=== PATIENT | male | born 1990 | race Two or more races ===

== ENCOUNTER 2016-10-17 23:20 | Inpatient (IN) | payer SELFPAY ==
[2016-10-18 00:34] LABS: APPEARANCE,URINE CLEAR; BILIRUBIN,URINE NEGATIVE (NEGATIVE); GLUCOSE, URINE >=500 mg/dL (NEGATIVE); KETONES,URINE 80 mg/dL (NEGATIVE); LEUKOCYTE ESTERASE,URINE NEGATIVE (NEGATIVE); NITRITE,URINE NEGATIVE (NEGATIVE); PROTEIN,URINE 30 mg/dL (NEGATIVE); URINE SPECIFIC GRAVITY 1.026; UROBILINOGEN,URINE NEGATIVE mg/dL (<2.0)
[2016-10-18] MEDS ORDERED: NORMAL SALINE 1000 ML 1,000 ML IV ONE ×3 (00:48→02:20)
[2016-10-18] MEDS ORDERED: ONDANSETRON HCL INJ/PF 4 MG/2 ML SDV IV ONE (00:49)
[2016-10-18 01:13] LABS: HEMATOCRIT 58.6 % (37.9-51.0); HEMOGLOBIN 19.2 g/dL (13.5-17.0); MEAN CORPUSCULAR HEMOGLOBIN 32.5 pg (27.0-33.4); MEAN CORPUSCULAR HGB CONC 32.8 g/dL (32.0-36.0); MEAN CORPUSCULAR VOLUME 99 fl (80-97); RED BLOOD COUNT 5.91 10^6/uL (4.35-5.55); RED CELL DISTRIBUTION WIDTH 13.1 % (11.5-14.0); WHITE BLOOD COUNT 19.4 10^3/uL (4.0-10.5)
[2016-10-18 01:31] LABS: ALANINE AMINOTRANSFERASE 101 U/L (21-72); ALBUMIN 5.2 g/dL (3.5-5.0); ALKALINE PHOSPHATASE 151 U/L (38-126); ASPARTATE AMINO TRANSFERASE 26 U/L (17-59); BILIRUBIN,DIRECT 0.6 mg/dL (0.0-0.4); BILIRUBIN,TOTAL 0.9 mg/dL (0.2-1.3); BLOOD UREA NITROGEN 28 mg/dL (7-20); CALCIUM 10.1 mg/dL (8.4-10.2); CREATININE RESULT 1.81 mg/dL (0.52-1.25)
[2016-10-18 01:33] LABS: BAND NEUTROPHILS % (MANUAL) 1 % (3-5); BASOPHILS % (MANUAL) 0 % (0-2); EOSINOPHILS % (MANUAL) 0 % (0-6); LYMPHOCYTES % (MANUAL) 1 % (13-45); TOTAL CELLS COUNTED 100
[2016-10-18 01:35] LABS: TOXIC VACUOLATION PRESENT
[2016-10-18 01:36] LABS: BURR CELLS SLIGHT; POIKILOCYTOSIS SLIGHT; TEAR DROP CELLS SLIGHT
[2016-10-18 01:43] LABS: CHLORIDE 96 mmol/L (98-107); SODIUM 139.7 mmol/L (137-145)
[2016-10-18 01:47] LABS: CARBON DIOXIDE < 5 mmol/L (22-30); GLUCOSE 977 mg/dL (75-110); POTASSIUM 6.7 mmol/L (3.6-5.0)
[2016-10-18] MEDS ORDERED: INSULIN REG, HUMAN 100 UNIT/ML 3 ML VIAL (PYX) IV ONE (01:53)
[2016-10-18] MEDS ORDERED: DEXTROSE 5%-WATER 1000 ML 1,000 ML with SODIUM BICARBONATE 150 MEQ IV PRN ×2 (02:05)
--- NOTE | 2016-10-18 02:05 | ER Document Report ---
ED General - General Chief Complaint: Abdominal Pain Stated Complaint: ABDOMINAL PAIN Time Seen by Provider: 10/18/16 00:48 Notes: Patient is a 26-year-old male without past medical history, no prior surgical history who presents with 1 week of progressively worsening nausea, vomiting, diarrhea and generalized abdominal pain. He was seen at 2 urgent cares on 2 separate occasions and diagnosis having a possible pharyngitis. He was treated with penicillin without improvement of his symptoms. He denies any history of similar symptoms in the past. No known sick contacts. Nothing improves or worsens his symptoms. States he has been unable to tolerate oral intake all day today. He has no prior history of diabetes. No recent viral illnesses. He does note a diffuse generalized abdominal pain which is moderate, cramping, constant in nature. TRAVEL OUTSIDE OF THE [place] IN LAST 30 DAYS: No - Related Data Allergies/Adverse Reactions: No Known Allergies Allergy (Verified 10/17/16 23:30) Home Medications: Current Home Medications No Home Medications 10/18/16 [History] Past Medical History - General Information source: Patient - Social History Smoking Status: Never Smoker Frequency of alcohol use: None Drug Abuse: None Lives with: Family Family History: Reviewed & Not Pertinent Patient has suicidal ideation: No Patient has homicidal ideation: No Renal/ Medical History: Denies: Hx Peritoneal Dialysis Surgical Hx: Negative Review of Systems - Review of Systems Notes: Constitutional: Negative for fever. HENT: Negative for sore throat. Eyes: Negative for visual changes. Cardiovascular: Negative for chest pain. Respiratory: Negative for shortness of breath. Gastrointestinal: Positive for abdominal pain vomiting and diarrhea Genitourinary: Negative for dysuria. Musculoskeletal: Negative for back pain. Skin: Negative for rash. Neurological: Negative for headaches, weakness or numbness. 10 point ROS negative except as marked above and in HPI. Physical Exam - Vital signs Vitals: Temp Pulse Resp BP Pulse Ox 98.4 F 138 H 18 127/83 H 98 10/17/16 23:30 10/17/16 23:30 10/17/16 23:30 10/17/16 23:30 10/17/16 23:30 Interpretation: Tachycardic Notes: PHYSICAL EXAMINATION: GENERAL: Appears ill but in no acute distress HEAD: Atraumatic, normocephalic. EYES: Pupils equal round and reactive to light, extraocular movements intact, sclera anicteric, conjunctiva are normal. ENT: nares patent, oropharynx clear without exudates. Moderately dry mucous membranes. NECK: Normal range of motion, supple without lymphadenopathy LUNGS: Breath sounds clear to auscultation bilaterally and equal. No wheezes rales or rhonchi. HEART: Regular rate and rhythm without murmurs ABDOMEN: Soft, diffuse mild tenderness to palpation, normoactive bowel sounds. No guarding, no rebound. No masses appreciated. EXTREMITIES: Normal range of motion, no pitting or edema. No cyanosis. NEUROLOGICAL: No focal neurological deficits. Moves all extremities spontaneously and on command. PSYCH: Mildly lethargic but appropriate in responses SKIN: Warm, Dry, normal turgor, no rashes or lesions noted. Course - Re-evaluation Re-evalutation: 10/18/16 0120 Patient presents with 1 week of progressively worsening vomiting, diarrhea, a 10 pound weight loss in 1 week, polyuria and polydipsia. Patient is somewhat ill in appearance, extremely dry, tachycardic but is not altered. He does have Kussmaul's respirations. Presentation is worrisome for new onset diabetes. Awaiting laboratories 0150-laboratories demonstrate findings consistent with diabetic ketoacidosis likely with severe acidosis and significant dehydration given bicarb less than 5 , hypernatremia, and severe hyperkalemia. Patient has been started on 3 L of normal saline, and insulin infusion has been started. Awaiting venous blood gas results. His physical examination is overall unremarkable with exception of significant dehydration. Will continue to reassess frequently. 10/18/16 02:20 I have discussed this case with Dr. Keita who will admit to the ICU. Will continue to monitor while the patient is down here. He is working through his third liter of normal saline at this time. 10/18/16 03:32 Patient remains tachycardic but alert, oriented and appropriate. Continue with aggressive IV fluids. Care transferred to the hospitalist. - Vital Signs Vital signs: Temp Pulse Resp BP Pulse Ox 98.4 F 138 H 22 H 131/92 H 97 10/17/16 23:30 10/17/16 23:30 10/18/16 03:00 10/18/16 02:00 10/18/16 03:00 - Laboratory Result Diagrams: 10/18/16 00:59 10/18/16 00:59 Laboratory results interpreted by me: 10/18/16 10/18/16 10/18/16 00:07 00:59 00:59 WBC 19.4 H RBC 5.91 H Hgb 19.2 H Hct 58.6 H MCV 99 H Seg Neuts % (Manual) 98 H Band Neutrophils % 1 L Lymphocytes % (Manual) 1 L Monocytes % (Manual) 0 L Abs Neuts (Manual) 19.2 H Abs Lymphs (Manual) 0.2 L Abs Monocytes (Manual) 0.0 L Potassium 6.7 H* Chloride 96 L Carbon Dioxide < 5 L* BUN 28 H Creatinine 1.81 H Est GFR ( Amer) 56 L Est GFR (Non-Af Amer) 46 L Glucose 977 H* Hemoglobin A1c % Magnesium Direct Bilirubin 0.6 H ALT 101 H Alkaline Phosphatase 151 H Albumin 5.2 H Urine Protein 30 H Urine Glucose (UA) >=500 H Urine Ketones 80 H Urine Blood MODERATE H 10/18/16 10/18/16 00:59 00:59 WBC RBC Hgb Hct MCV Seg Neuts % (Manual) Band Neutrophils % Lymphocytes % (Manual) Monocytes % (Manual) Abs Neuts (Manual) Abs Lymphs (Manual) Abs Monocytes (Manual) Potassium Chloride Carbon Dioxide BUN Creatinine Est GFR ( Amer) Est GFR (Non-Af Amer) Glucose Hemoglobin A1c % 9.1 H Magnesium 3.0 H Direct Bilirubin ALT Alkaline Phosphatase Albumin Urine Protein Urine Glucose (UA) Urine Ketones Urine Blood - EKG Interpretation by Me Additional EKG results interpreted by me: 10/18/16 03:32 Sinus tachycardia. Rate 126. No ST elevations or depressions. QTC is 499. Critical Care Note - Critical Care Note Total time excluding time spent on procedures (mins): 42 Comments: Critical care time spent obtaining history from patient or surrogate, discussions with consultants, development of treatment plan with patient or surrogate, evaluation of patient's response to treatment, examination of patient , ordering and performing treatments and interventions, ordering and review of laboratory studies, re-evaluation of patient's condition, ordering and review of radiographic studies and review of old charts Discharge - Discharge Clinical Impression: Metabolic acidosis, Severe dehydration Diabetic ketoacidosis Qualifiers: Diabetes mellitus type: type 1 Diabetes mellitus complication detail: without coma Qualified Code(s): E10.10 - Type 1 diabetes mellitus with ketoacidosis without coma Condition: Fair Disposition: ADMITTED INPATIENT Admitting Provider: Bertha Ortizwell Unit Admitted: ICU
[2016-10-18] MEDS ORDERED: 1/2 NORMAL SALINE 1,000 ML IV PRN (02:24)
[2016-10-18] MEDS ORDERED: DEXTROSE 40% GEL 15 GM TUBE PO PRN ×2 (02:26)
[2016-10-18] MEDS ORDERED: NORMAL SALINE 100 ML with INSULIN REGULAR, HUMAN 100 UNIT IV PRN ×2 (02:26)
[2016-10-18] MEDS ORDERED: DEXTROSE 50%-WATER 25 GM/50 ML DISP.SYRIN IV PRN ×2 (02:26)
[2016-10-18] MEDS ORDERED: GLUCAGON,HUMAN RECOMB 1 MG INJ IM PRN (02:26)
[2016-10-18] MEDS ORDERED: 1/2 NORMAL SALINE 2,000 ML IV ONE (02:30)
[2016-10-18 02:48] LABS: ARTERIAL BLOOD BASE EXCESS -21.5 mmol/L; ARTERIAL BLOOD O2 SATURATION 96.8 % (94-98)
[2016-10-18 03:14] LABS: URINE BARBITURATES SCREEN NEGATIVE; URINE METHADONE SCREEN NEGATIVE; URINE OPIATES LOW NEGATIVE; URINE PHENCYCLIDINE SCREEN NEGATIVE
[2016-10-18 03:44] LABS: BLOOD UREA NITROGEN 24 mg/dL (7-20); CALCIUM 8.6 mg/dL (8.4-10.2); CHLORIDE 112 mmol/L (98-107); CREATININE RESULT 1.22 mg/dL (0.52-1.25)
--- NOTE | 2016-10-18 03:46 | RADIOLOGY REPORT (SQ) ---
EXAM DESCRIPTION: CHEST SINGLE VIEW COMPLETED DATE/TIME: 10/18/2016 2:46 am REASON FOR STUDY: dka COMPARISON: None. EXAM PARAMETERS: NUMBER OF VIEWS: One view. TECHNIQUE: Single frontal radiographic view of the chest acquired. RADIATION DOSE: NA LIMITATIONS: None. FINDINGS: LUNGS AND PLEURA: No consolidation, pneumothorax or pleural effusion. MEDIASTINUM AND HILAR STRUCTURES: No masses. Contour normal. HEART AND VASCULAR STRUCTURES: Heart normal in size. No overt vascular congestion. BONES: No acute findings. HARDWARE: None in the chest. IMPRESSION: No acute radiographic finding in the chest. TECHNICAL DOCUMENTATION: JOB ID: [id number]
[2016-10-18 03:58] LABS: SODIUM 148.4 mmol/L (137-145)
[2016-10-18 04:01] LABS: POTASSIUM 5.4 mmol/L (3.6-5.0)
[2016-10-18 04:03] LABS: CARBON DIOXIDE < 5 mmol/L (22-30); GLUCOSE 629 mg/dL (75-110)
[2016-10-18] MEDS ORDERED: MAG HYDROX/AL HYDROX/SIMETH SUSP 30 ML UDCUP PO PRN (04:57)
[2016-10-18] MEDS ORDERED: MAGNESIUM HYDROXIDE SUSP 30 ML UDCUP PO PRN (04:57)
[2016-10-18] MEDS ORDERED: PROMETHAZINE HCL 25 MG TABLET PO PRN (05:10)
[2016-10-18] MEDS ORDERED: ACETAMINOPHEN 325 MG TABLET PO PRN (05:10)
--- NOTE | 2016-10-18 05:35 | PDOC H&P ---
History of Present Illness Admission Date/PCP: 10/18/16 02:26 Primary care provider none Patient complains of: Nausea vomiting, weight loss, diarrhea, polyuria, polydipsia History of Present Illness: DINORAH UMANA is a 26 year old male from [facility], having lived in this country for 8 years, who presents to the emergency room for evaluation of above complaints. Patient has been discussed with emergency room physician who evaluated the patient. Patient himself speaks minimal Estonian but brother, who is present at his side with his approval, functions nicely as an interpreter deaf. For the past week he has had a number of episodes of nonbloody vomiting and diarrhea, 10 pound weight loss, polyuria and polydipsia. Apparently was seen at an outside urgent care center several days ago. Patient was not aware is diabetic. Father is diabetic, however. Was quite ill in appearance upon arrival to our emergency room, but according to staff, overall clinical appearance has improved significantly. Currently resting quietly. Complaining of being fatigued, but denies pain. Denies any "sore spots" anywhere on his body. Dictation via voice recognition software. Laboratory results are listed in hereO and are reviewed. X-ray summary results are listed below, with full report(s) reviewed. . EKG reviewed. Social history/personal habits: Single. 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 Occasional intermittent use of tobacco. Drinks alcohol only 1 day a week, on his day off, and will typically drink 8-10 beers at that time. No illicit drug use. No known drug allergies. Home medications none. REVIEW OF SYSTEMS: Constitutional: No fever or chills. Eyes: No vision complaints. ENT: No swallowing problems or complaints, other than very slight sore throat since his episodes of vomiting.. Denies hearing loss. Pulmonary: No current complaints. Cardiovascular: No current complaints, including chest pain. Gastrointestinal: See history and present illness. Skin: No current complaints, including rashes. Hematologic: Easy bruising. Neurologic: No current complaints, including numbness or tingling. Musculoskeletal: No current or chronic joint complaints, such as arthritis. Psychiatric: Mild occasional depression. Denies suicidal or homicidal ideation. Endocrine: See history and present illness. Genitourinary: See history and present illness. PHYSICAL EXAMINATION: 5 feet tall. 54.3 kg. BMI 23.4 kg/m. Blood pressure 131/92. Pulse 114 and regular. 97% saturation on room air. Respirations are 29 and unlabored. Temperature 98.2. Thin otherwise well-nourished well-developed male, appearing approximately his stated age. Pleasant awake alert and cooperative. Appears somewhat fatigued, and perhaps to feel a bit under the weather, so to speak. Brothers present at his side. Emergency room nurse Ava is present. Skin is warm and dry. No grossly obvious evidence of rash in areas of skin examined. No subcutaneous nodules palpated. ENT: Hearing grossly normal to normal conversation. Tongue midline on protrusion pink and slightly tacky. Eyes: No scleral icterus. Pupils equal and reactive to light at 4 mm. Crown conjunctivae. Neck is supple and nontender to gentle active range of motion and palpation. Midline trachea. No palpable thyroid nodule mass enlargement or tenderness. Lymphatic: No palpable cervical or clavicular nodes. Neck and lymphatic exams limited by patient body habitus. Psychiatric: Fair to reasonable insight into acute and chronic medical issues. Lungs: Auscultation reveals clear and equal breath sounds bilaterally. No use of accessory respiratory muscles. Cardiovascular: Heart regular rate and rhythm, without gallop murmur or rub. No carotid or abdominal aortic bruits. No ankle or pedal edema. Palpable dorsalis pedis pulses. Abdomen:soft slightly distended nontender with positive bowel sounds. Unable to adequately evaluate abdomen for masses or organomegaly due to distention. Extremities: Feet are warm and dry. No calf tenderness to compression. No grossly obvious visual evidence of calf swelling. Gentle manipulation of lower extremities fails to reveal any obvious evidence of injury or instability to knees hips or ankles. Neurologic: Moves upper extremities grossly normally. Patellar reflexes absent. Absent Babinski. Light touch is intact at feet. Dorsiflexion and plantarflexion of feet 5 / 5 and symmetric. Past Medical History Cardiac Medical History: Denies: Congestive Heart Failure, Myocardial Infarction, Hyperlipidema, Hypertension Pulmonary Medical History: Denies: Asthma, Chronic Obstructive Pulmonary Disease (COPD) EENT Medical History: Denies: Eyes, Ears, Throat Neurological Medical History: Denies: Hemorrhagic CVA, Ischemic CVA, Seizures Endocrine Medical History: Denies: Diabetes Mellitus Type 1, Diabetes Mellitus Type 2, Hyperthyroidism, Hypothyroidism Renal/ Medical History: Reports: None GI Medical History: Denies: Cirrhosis, Gastroesophageal Reflux Disease, Hepatitis, Peptic Ulcer Disease Musculoskeltal Medical History: Denies: Arthritis Skin Medical History: Reports: None Psychiatric Medical History: Reports: Depression, Tobacco Dependency, Other - Drinks only on his 1 day off per week; 8-10 beers on that day. Denies: General Anxiety Disorder, Substance Abuse Hematology: Reports: Other - Easy bruising Infectious Medical History: Denies: Hepatitis B, Hepatitis C Past Surgical History Past Surgical History: Reports: None Social History Information Source: Patient, Relative - Brother, Emergency Med Personnel, [facility] Records Lives with: Family Smoking Status: Current Some Day Smoker Frequency of Alcohol Use: Social Drugs: None - Advance Directive Resuscitation Status: Full Code Surrogate healthcare decision maker:: Brother Family History Family History: Reviewed & Not Pertinent Parental Family History Reviewed: Yes - Father diabetic; mother alive and healthy. Children Family History Reviewed: NA Sibling(s) Family History Reviewed.: Yes - Healthy Medication/Allergy Home Medications: Blood Sugar Diagnostic [Glucose Test Strip] 1 each ACHS #1 pkg 10/20/16 RX: Alcohol Antiseptic Pads [Alcohol Prep Pads] 1 each TP ASDIR PRN #1 pkg 10/20 RX: Hum Insulin NPH/Reg Insulin Hm [Insulin 70-30 (NPH/Reg) 100 unit/mL] 25 unit SUBCUT BIDACBS #1 vial 10/20/16 RX: Lancets [Fingerstix] 1 each ACHS #1 pkg 10/20/16 RX: Metformin HCl [Glucophage 500 mg Tablet] 1,000 mg PO BIDACBS #120 tablet Syringe & Needle,Insulin,1 ml [Insulin Syringe] 1 each BID #1 pkg 10/20/16 Allergies/Adverse Reactions: No Known Allergies Allergy (Verified 10/17/16 23:30) Physical Exam Vital Signs: Temp Pulse Resp BP Pulse Ox 98.2 F 138 H 27 H 126/88 H 98 10/18/16 03:34 10/17/16 23:30 10/18/16 04:16 10/18/16 04:16 10/18/16 04:01 Intake & Output 10/17/16 10/18/16 10/19/16 00:59 00:59 00:59 Output Total 1175 Balance -1175 Results Laboratory Results: 10/18/16 03:15 10/18/16 10/18/16 02:38 03:15 Carbonic Acid 0.54 L HCO3/H2CO3 Ratio 10:1 ABG pH 7.11 L* ABG pCO2 18.0 L* ABG pO2 114.1 H ABG HCO3 5.6 L ABG O2 Saturation 96.8 ABG Base Excess -21.5 FiO2 21% Sodium 148.4 H Potassium 5.4 H D Chloride 112 H Carbon Dioxide < 5 L* Anion Gap Not Reportable BUN 24 H Creatinine 1.22 Est GFR ( Amer) > 60 Est GFR (Non-Af Amer) > 60 Glucose 629 H* Calcium 8.6 10/18/16 03:15 Troponin I < 0.012 Impressions: Chest X-Ray 10/18/16 00:00 IMPRESSION: No acute radiographic finding in the chest. Assessment & Plan - Diagnosis (1) DVT prophylaxis Is this a current diagnosis for this admission?: Yes (2) Leukocytosis Qualifiers: Leukocytosis type: unspecified Qualified Code(s): D72.829 - Elevated white blood cell count, unspecified Is this a current diagnosis for this admission?: Yes Plan: Suspect a stress reaction to the diabetic ketoacidosis. No obvious source of infection. Repeat CBC with differential. (3) Elevated LFTs Is this a current diagnosis for this admission?: Yes Plan: Suspect due to the underlying DKA. Denies underlying biliary disease. Follow- up chemistry. (4) Diabetic ketoacidosis Qualifiers: Diabetes mellitus type: other specified (including DANIELLE) Diabetes mellitus complication detail: without coma Qualified Code(s): E13.10 - Other specified diabetes mellitus with ketoacidosis without coma Is this a current diagnosis for this admission?: Yes Plan: Patient will be admitted under DKA protocol. Insulin drip. Vigorous fluid hydration. Q 4 hours chemistry 7. Hourly Accu-Cheks. Addition of dextrose to intravenous fluid once serum glucose and/or Accu-Cheks 275 or less. Patient is full code. I have strongly encouraged patient not to get out of bed without notifying staff , to avoid a fall with injury. Knee high SCDs for DVT prophylaxis, along with subcutaneous Lovenox. Impression and plans were discussed with patient and brother, both of whom concur Time spent in evaluation and management of patient: 72 critical-care minutes - Time Critical Time spent with patient: 35 or more minutes Medications reviewed and adjusted accordingly: Yes Anticipated discharge: Home Within: within 72 hours - Inpatient Certification Based on my medical assessment, after consideration of the patient's comorbidities, presenting symptoms, or acuity I expect that the services needed warrant INPATIENT care.: Yes I certify that my determination is in accordance with my understanding of Medicare's requirements for reasonable and necessary INPATIENT services [42 CFR 412.3e].: Yes Medical Necessity: Need Close Monitoring Due to Risk of Patient Decompensation, Need For IV Fluids, Need For Continuous Telemetry Monitoring, Risk of Complication if Not Cared For in Hospital Post Hospital Care: D/C or Transfer Summary
[2016-10-18] MEDS: FAMOTIDINE INJ/PF 20 MG/2 ML SDV IV SCH ×2 (06:06→18:16)
[2016-10-18] MEDS ORDERED: DEXTROSE 5%-1/2 NORMAL SALINE 1,000 ML IV PRN (06:28)
[2016-10-18 06:55] LABS: ABSOLUTE BASOPHILS # (AUTO) 0.1 10^3/uL (0.0-0.2); ABSOLUTE LYMPHOCYTES (AUTO) 1.9 10^3/uL (0.5-4.7); ABSOLUTE MONOCYTES (AUTO) 1.2 10^3/uL (0.1-1.4); ABSOLUTE NEUT (AUTO) 12.3 10^3/uL (1.7-8.2); BASOPHILS % (AUTO) 0.4 % (0-2); HEMATOCRIT 43.2 % (37.9-51.0); HGB HCT DIFFERENCE 1.2; LYMPHOCYTES % (AUTO) 12.1 % (13-45); MEAN CORPUSCULAR HEMOGLOBIN 32.3 pg (27.0-33.4); MEAN CORPUSCULAR HGB CONC 34.3 g/dL (32.0-36.0); MONOCYTES % (AUTO) 7.5 % (3-13); RED CELL DISTRIBUTION WIDTH 12.6 % (11.5-14.0); WHITE BLOOD COUNT 15.4 10^3/uL (4.0-10.5)
[2016-10-18 07:03] LABS: HEMOGLOBIN 14.8 g/dL (13.5-17.0); MEAN CORPUSCULAR VOLUME 94 fl (80-97)
[2016-10-18 07:04] LABS: ALANINE AMINOTRANSFERASE 70 U/L (21-72); ALBUMIN 3.4 g/dL (3.5-5.0); ALKALINE PHOSPHATASE 87 U/L (38-126); ANION GAP 19 (5-19); ASPARTATE AMINO TRANSFERASE 18 U/L (17-59); BILIRUBIN,DIRECT 0.4 mg/dL (0.0-0.4); BILIRUBIN,TOTAL 0.7 mg/dL (0.2-1.3); BLOOD UREA NITROGEN 17 mg/dL (7-20); CALCIUM 7.8 mg/dL (8.4-10.2); CHLORIDE 117 mmol/L (98-107); CHOLESTEROL 164.23 mg/dL (0-200); CREATININE RESULT 0.75 mg/dL (0.52-1.25); Direct HDL 34 mg/dL (>40); GLUCOSE 273 mg/dL (75-110); SODIUM 144.6 mmol/L (137-145); TOTAL PROTEIN 5.6 g/dL (6.3-8.2); TRIGLYCERIDES 260 mg/dL (<150)
[2016-10-18 07:15] LABS: DIRECT LDL 92 mg/dL (<100)
[2016-10-18 07:16] LABS: POTASSIUM 4.3 mmol/L (3.6-5.0)
[2016-10-18 07:18] LABS: CARBON DIOXIDE 9 mmol/L (22-30)
--- NOTE | 2016-10-18 08:17 | Progress Note ---
Provider Note Provider Note: Pt seen, examined, and chart reviewed. Pt states that he was recently diagnosed with DM. Pt states that his father gives him insulin and he does not know who much he takes. Nursing states that pt is doing well. Will continue Insulin drip until CO2 and Ketones have resolved. Will placed on Diabetic diet.
[2016-10-18 09:19] LABS: APPEARANCE,URINE SLIGHTLY-CLOUDY; BILIRUBIN,URINE NEGATIVE (NEGATIVE); GLUCOSE, URINE >=500 mg/dL (NEGATIVE); KETONES,URINE 80 mg/dL (NEGATIVE); LEUKOCYTE ESTERASE,URINE SMALL (NEGATIVE); NITRITE,URINE NEGATIVE (NEGATIVE); PROTEIN,URINE 30 mg/dL (NEGATIVE); URINE SPECIFIC GRAVITY 1.022; UROBILINOGEN,URINE NEGATIVE mg/dL (<2.0)
[2016-10-18] MEDS ORDERED: DOCUSATE SODIUM 100 MG CAPSULE PO SCH (10:00)
[2016-10-18] MEDS: ENOXAPARIN SODIUM INJ 40 MG/0.4 ML DISP.SYRIN SUBCUT SCH (10:32)
[2016-10-18 11:09] LABS: ANION GAP 13 (5-19); BLOOD UREA NITROGEN 14 mg/dL (7-20); CALCIUM 7.9 mg/dL (8.4-10.2); CARBON DIOXIDE 16 mmol/L (22-30); CHLORIDE 113 mmol/L (98-107); CREATININE RESULT 0.67 mg/dL (0.52-1.25); GLUCOSE 358 mg/dL (75-110); POTASSIUM 3.7 mmol/L (3.6-5.0); SODIUM 141.6 mmol/L (137-145)
[2016-10-18 15:01] LABS: ANION GAP 13 (5-19); BLOOD UREA NITROGEN 12 mg/dL (7-20); CALCIUM 8.3 mg/dL (8.4-10.2); CARBON DIOXIDE 15 mmol/L (22-30); CHLORIDE 114 mmol/L (98-107); CREATININE RESULT 0.64 mg/dL (0.52-1.25); GLUCOSE 236 mg/dL (75-110); SODIUM 141.7 mmol/L (137-145)
[2016-10-18 21:49] LABS: APPEARANCE,URINE CLEAR; BILIRUBIN,URINE NEGATIVE (NEGATIVE); GLUCOSE, URINE >=500 mg/dL (NEGATIVE); KETONES,URINE 20 mg/dL (NEGATIVE); LEUKOCYTE ESTERASE,URINE NEGATIVE (NEGATIVE); NITRITE,URINE NEGATIVE (NEGATIVE); PROTEIN,URINE NEGATIVE (NEGATIVE); URINE SPECIFIC GRAVITY 1.025; UROBILINOGEN,URINE NEGATIVE mg/dL (<2.0)
--- NOTE | 2016-10-18 22:06 | EKG REPORT ---
SEVERITY:- ABNORMAL ECG - SINUS TACHYCARDIA PROLONGED QT INTERVAL : Confirmed by: Monica Ga 18-Oct-2016 22:05:22
[2016-10-18 22:53] LABS: ANION GAP 8 (5-19); BLOOD UREA NITROGEN 9 mg/dL (7-20); CALCIUM 8.8 mg/dL (8.4-10.2); CARBON DIOXIDE 21 mmol/L (22-30); CHLORIDE 111 mmol/L (98-107); CREATININE RESULT 0.53 mg/dL (0.52-1.25); GLUCOSE 158 mg/dL (75-110); SODIUM 139.5 mmol/L (137-145)
[2016-10-18 23:08] LABS: POTASSIUM 2.9 mmol/L (3.6-5.0)
[2016-10-18 23:34] LABS: ANION GAP 10 (5-19); BLOOD UREA NITROGEN 11 mg/dL (7-20); CALCIUM 8.5 mg/dL (8.4-10.2); CARBON DIOXIDE 18 mmol/L (22-30); CHLORIDE 113 mmol/L (98-107); CREATININE RESULT 0.61 mg/dL (0.52-1.25); GLUCOSE 220 mg/dL (75-110); POTASSIUM 3.1 mmol/L (3.6-5.0); SODIUM 140.5 mmol/L (137-145)
[2016-10-19] MEDS ORDERED: NORMAL SALINE 1000 ML 1,000 ML IV PRN (00:26)
[2016-10-19 00:33] LABS: ADD ON TESTING BLD IN LAB ACKNOWLEDGE
[2016-10-19 00:47] LABS: MAGNESIUM 2.1 mg/dL (1.6-2.3)
[2016-10-19] MEDS: POTASSIUM CHLORIDE 20 MEQ/15 ML UDCUP PO SCH ×4 (01:44→06:16)
[2016-10-19 02:19] LABS: APPEARANCE,URINE CLEAR; BILIRUBIN,URINE NEGATIVE (NEGATIVE); GLUCOSE, URINE >=500 mg/dL (NEGATIVE); KETONES,URINE 80 mg/dL (NEGATIVE); LEUKOCYTE ESTERASE,URINE NEGATIVE (NEGATIVE); NITRITE,URINE NEGATIVE (NEGATIVE); PROTEIN,URINE NEGATIVE (NEGATIVE); UROBILINOGEN,URINE NEGATIVE mg/dL (<2.0)
[2016-10-19 04:48] LABS: ABSOLUTE EOSINOPHILS # (AUTO) 0.5 10^3/uL (0.0-0.6); ABSOLUTE LYMPHOCYTES (AUTO) 1.5 10^3/uL (0.5-4.7); ABSOLUTE MONOCYTES (AUTO) 0.4 10^3/uL (0.1-1.4); ABSOLUTE NEUT (AUTO) 7.7 10^3/uL (1.7-8.2); BASOPHILS % (AUTO) 0.5 % (0-2); EOSINOPHILS % (AUTO) 4.7 % (0-6); HEMATOCRIT 39.4 % (37.9-51.0); HEMOGLOBIN 14.1 g/dL (13.5-17.0); HGB HCT DIFFERENCE 2.9; LYMPHOCYTES % (AUTO) 14.8 % (13-45); MEAN CORPUSCULAR HEMOGLOBIN 33.1 pg (27.0-33.4); MEAN CORPUSCULAR HGB CONC 35.8 g/dL (32.0-36.0); MEAN CORPUSCULAR VOLUME 93 fl (80-97); MONOCYTES % (AUTO) 3.9 % (3-13); RED BLOOD COUNT 4.26 10^6/uL (4.35-5.55); RED CELL DISTRIBUTION WIDTH 12.9 % (11.5-14.0); SEGMENTED NEUTROPHILS % (AUTO) 76.1 % (42-78); WHITE BLOOD COUNT 10.1 10^3/uL (4.0-10.5)
[2016-10-19 05:04] LABS: ALANINE AMINOTRANSFERASE 51 U/L (21-72); ALBUMIN 2.9 g/dL (3.5-5.0); ALKALINE PHOSPHATASE 68 U/L (38-126); ANION GAP 11 (5-19); ASPARTATE AMINO TRANSFERASE 21 U/L (17-59); BILIRUBIN,DIRECT 0.3 mg/dL (0.0-0.4); BILIRUBIN,TOTAL 1.5 mg/dL (0.2-1.3); BLOOD UREA NITROGEN 8 mg/dL (7-20); CALCIUM 8.8 mg/dL (8.4-10.2); CARBON DIOXIDE 18 mmol/L (22-30); CHLORIDE 109 mmol/L (98-107); CREATININE RESULT 0.58 mg/dL (0.52-1.25); GLUCOSE 313 mg/dL (75-110); MAGNESIUM 1.9 mg/dL (1.6-2.3); SODIUM 138.1 mmol/L (137-145)
[2016-10-19 05:16] LABS: POTASSIUM 4.2 mmol/L (3.6-5.0)
[2016-10-19] MEDS: FAMOTIDINE INJ/PF 20 MG/2 ML SDV IV SCH (05:48)
[2016-10-19] MEDS: INSULIN LISPRO 100 UNIT/ML 3 ML VIAL SUBCUT PRN ×4 (06:15→22:15)
[2016-10-19] MEDS ORDERED: MAGNESIUM HYDROXIDE SUSP 30 ML UDCUP PO PRN (07:30)
[2016-10-19] MEDS ORDERED: MAG HYDROX/AL HYDROX/SIMETH SUSP 30 ML UDCUP PO PRN (07:30)
[2016-10-19] MEDS ORDERED: HUM INSULIN NPH/REG INSULIN HM 100 UNIT/1 ML 3 ML SUBCUT ONE (09:00)
[2016-10-19] MEDS: NORMAL SALINE 1000 ML 1,000 ML IV PRN (09:02)
[2016-10-19] MEDS: ENOXAPARIN SODIUM INJ 40 MG/0.4 ML DISP.SYRIN SUBCUT SCH (09:08)
[2016-10-19 09:38] LABS: APPEARANCE,URINE CLEAR; BILIRUBIN,URINE NEGATIVE (NEGATIVE); GLUCOSE, URINE >=500 mg/dL (NEGATIVE); KETONES,URINE 80 mg/dL (NEGATIVE); LEUKOCYTE ESTERASE,URINE NEGATIVE (NEGATIVE); NITRITE,URINE NEGATIVE (NEGATIVE); PROTEIN,URINE NEGATIVE (NEGATIVE); UROBILINOGEN,URINE NEGATIVE mg/dL (<2.0)
--- NOTE | 2016-10-19 16:13 | PDOC PROGRESS REPORT ---
Subjective Progress Note for:: 10/19/16 Subjective:: Patient denies taking medicine at home for diabetes. He does not take any pills or injections. Patient denies chest pain, shortness of breath, abdominal pain, nausea, vomiting , fevers, chills, diarrhea, constipation, headache, new onset weakness. Physical Exam Vital Signs: Temp Pulse Resp BP Pulse Ox 98.3 F 96 17 124/71 99 10/19/16 11:38 10/19/16 11:38 10/19/16 11:38 10/19/16 11:38 10/19/16 11:38 Intake & Output 10/18/16 10/19/16 10/20/16 06:59 06:59 06:59 Intake Total 4585 1331 Output Total 1675 3425 775 Balance -1675 1160 556 Weight 56.7 kg 59.3 kg Exam: General: Awake alert and oriented x3, no acute respiratory distress HEENT: AT/NC, PERRL, EOMI, oropharynx is moist, pink, no scleral icterus, no conjunctival injection Neck: No JVD, trachea midline Chest: Clear to auscultation bilaterally, no wheezes rhonchi or rales CV: Regular rate and rhythm, normal S1 and S2, no murmur, rub, or gallop Abdomen: Soft, nontender to palpation, nondistended, active bowel sounds; no rebound, rigidity, or guarding Extremities: No cyanosis, clubbing or edema Neuro: Cranial nerves II through XII are grossly intact without focal deficits; awake alert and oriented x3 Psych: Normal mood and affect Results Laboratory Results: 10/19/16 04:29 10/19/16 04:29 10/18/16 10/18/16 10/18/16 18:30 21:30 22:22 WBC RBC Hgb Hct MCV MCH MCHC RDW Plt Count Seg Neutrophils % Lymphocytes % Monocytes % Eosinophils % Basophils % Absolute Neutrophils Absolute Lymphocytes Absolute Monocytes Absolute Eosinophils Absolute Basophils Sodium 140.5 139.5 Potassium 3.1 L 2.9 L* Chloride 113 H 111 H Carbon Dioxide 18 L 21 L Anion Gap 10 8 BUN 11 9 Creatinine 0.61 0.53 Est GFR ( Amer) > 60 > 60 Est GFR (Non-Af Amer) > 60 > 60 Glucose 220 H 158 H Calcium 8.5 8.8 Magnesium Total Bilirubin AST ALT Alkaline Phosphatase Total Protein Albumin Urine Color YELLOW Urine Appearance CLEAR Urine pH 6.0 Ur Specific [place] 1.025 Urine Protein NEGATIVE Urine Glucose (UA) >=500 H Urine Ketones 20 H Urine Blood SMALL H Urine Nitrite NEGATIVE Ur Leukocyte Esterase NEGATIVE Urine WBC (Auto) 2 Urine RBC (Auto) 0 10/18/16 10/18/16 10/19/16 23:16 23:16 02:05 WBC RBC Hgb Hct MCV MCH MCHC RDW Plt Count Seg Neutrophils % Lymphocytes % Monocytes % Eosinophils % Basophils % Absolute Neutrophils Absolute Lymphocytes Absolute Monocytes Absolute Eosinophils Absolute Basophils Sodium Potassium 2.9 L* Chloride Carbon Dioxide Anion Gap BUN Creatinine Est GFR ( Amer) Est GFR (Non-Af Amer) Glucose Calcium Magnesium 2.1 Total Bilirubin AST ALT Alkaline Phosphatase Total Protein Albumin Urine Color YELLOW Urine Appearance CLEAR Urine pH 6.0 Ur Specific [place] 1.020 Urine Protein NEGATIVE Urine Glucose (UA) >=500 H Urine Ketones 80 H Urine Blood NEGATIVE Urine Nitrite NEGATIVE Ur Leukocyte Esterase NEGATIVE Urine WBC (Auto) 1 Urine RBC (Auto) 10/19/16 10/19/16 10/19/16 04:29 04:29 09:25 WBC 10.1 RBC 4.26 L Hgb 14.1 Hct 39.4 MCV 93 MCH 33.1 MCHC 35.8 RDW 12.9 Plt Count 146 L Seg Neutrophils % 76.1 Lymphocytes % 14.8 Monocytes % 3.9 Eosinophils % 4.7 Basophils % 0.5 Absolute Neutrophils 7.7 Absolute Lymphocytes 1.5 Absolute Monocytes 0.4 Absolute Eosinophils 0.5 Absolute Basophils 0.0 Sodium 138.1 Potassium 4.2 D Chloride 109 H Carbon Dioxide 18 L Anion Gap 11 BUN 8 Creatinine 0.58 Est GFR ( Amer) > 60 Est GFR (Non-Af Amer) > 60 Glucose 313 H Calcium 8.8 Magnesium 1.9 Total Bilirubin 1.5 H AST 21 ALT 51 Alkaline Phosphatase 68 Total Protein 5.0 L Albumin 2.9 L Urine Color STRAW Urine Appearance CLEAR Urine pH 5.0 Ur Specific [place] 1.020 Urine Protein NEGATIVE Urine Glucose (UA) >=500 H Urine Ketones 80 H Urine Blood NEGATIVE Urine Nitrite NEGATIVE Ur Leukocyte Esterase NEGATIVE Urine WBC (Auto) 1 Urine RBC (Auto) Impressions: Chest X-Ray 10/18/16 00:00 IMPRESSION: No acute radiographic finding in the chest. Assessment & Plan - Diagnosis (1) Diabetic ketoacidosis Qualifiers: Diabetes mellitus type: other specified (including DANIELLE) Diabetes mellitus complication detail: without coma Qualified Code(s): E13.10 - Other specified diabetes mellitus with ketoacidosis without coma Is this a current diagnosis for this admission?: Yes Plan: Patient has been transitioned off of IV insulin. I have placed patient on 7030 twice daily and begun metformin for this patient. His hemoglobin A1c was 9.1. I requested the patient educator to conduct his education in German. Anticipate discharge in the next 24 hours as he is greatly improved. This is a new diagnosis of diabetes for this patient (2) Elevated LFTs Is this a current diagnosis for this admission?: Yes Plan: Likely secondary to dehydration (3) Leukocytosis Qualifiers: Leukocytosis type: unspecified Qualified Code(s): D72.829 - Elevated white blood cell count, unspecified Is this a current diagnosis for this admission?: Yes Plan: Improved without treatment likely reactive to his DKA (4) Metabolic acidosis Is this a current diagnosis for this admission?: Yes (5) Severe dehydration Is this a current diagnosis for this admission?: Yes (6) DVT prophylaxis Is this a current diagnosis for this admission?: Yes - Time Time Spent with patient: 25-34 minutes Medications reviewed and adjusted accordingly: Yes Anticipated discharge: Home Within: within 24 hours
[2016-10-19] MEDS ORDERED: METFORMIN HCL 500 MG TABLET PO ONE (17:00)
[2016-10-19] MEDS: HUM INSULIN NPH/REG INSULIN HM 100 UNIT/1 ML 3 ML SUBCUT SCH (17:24)
[2016-10-19 21:49] LABS: APPEARANCE,URINE CLEAR; BILIRUBIN,URINE NEGATIVE (NEGATIVE); GLUCOSE, URINE >=500 mg/dL (NEGATIVE); KETONES,URINE 80 mg/dL (NEGATIVE); LEUKOCYTE ESTERASE,URINE NEGATIVE (NEGATIVE); NITRITE,URINE NEGATIVE (NEGATIVE); PROTEIN,URINE NEGATIVE (NEGATIVE); URINE SPECIFIC GRAVITY 1.015; UROBILINOGEN,URINE NEGATIVE mg/dL (<2.0)
[2016-10-20] MEDS: NORMAL SALINE 1000 ML 1,000 ML IV PRN ×2 (00:30→05:20)
[2016-10-20 05:44] LABS: ANION GAP 10 (5-19); BLOOD UREA NITROGEN 7 mg/dL (7-20); CALCIUM 8.4 mg/dL (8.4-10.2); CARBON DIOXIDE 24 mmol/L (22-30); CHLORIDE 109 mmol/L (98-107); CREATININE RESULT 0.46 mg/dL (0.52-1.25); GLUCOSE 127 mg/dL (75-110); SODIUM 142.7 mmol/L (137-145)
[2016-10-20 05:49] LABS: POTASSIUM 2.7 mmol/L (3.6-5.0)
[2016-10-20] MEDS ORDERED: POTASSIUM CHLORIDE 10 MEQ TABLET.SA PO ONE ×3 (07:00→09:30)
[2016-10-20] MEDS ORDERED: POTASSIUM CHLORIDE 20 MEQ/50 ML RTU IV SCH (07:00)
[2016-10-20] MEDS ORDERED: METFORMIN HCL 500 MG TABLET PO SCH (08:00)
[2016-10-20] MEDS: HUM INSULIN NPH/REG INSULIN HM 100 UNIT/1 ML 3 ML SUBCUT SCH (08:30)
[2016-10-20] MEDS: ENOXAPARIN SODIUM INJ 40 MG/0.4 ML DISP.SYRIN SUBCUT SCH (09:49)
[2016-10-20] MEDS: INSULIN LISPRO 100 UNIT/ML 3 ML VIAL SUBCUT PRN (12:22)
[2016-10-20 12:45] LABS: ANION GAP 10 (5-19); BLOOD UREA NITROGEN 8 mg/dL (7-20); CALCIUM 9.7 mg/dL (8.4-10.2); CARBON DIOXIDE 25 mmol/L (22-30); CHLORIDE 106 mmol/L (98-107); GLUCOSE 184 mg/dL (75-110); SODIUM 140.8 mmol/L (137-145)
[2016-10-20 12:59] LABS: POTASSIUM 3.7 mmol/L (3.6-5.0)
[2016-10-20 15:10] VITALS: BP 122/79
--- NOTE | 2016-10-20 17:23 | PDOC DISCHARGE SUMMARY ---
General - Admit/Disc Date/PCP Admission Date/Primary Care Provider: 10/18/16 03:24 Discharge Date: 10/20/16 - Discharge Diagnosis (1) Diabetic ketoacidosis Is this a current diagnosis for this admission?: Yes (2) Elevated LFTs Is this a current diagnosis for this admission?: Yes (3) Leukocytosis Is this a current diagnosis for this admission?: Yes (4) Metabolic acidosis Is this a current diagnosis for this admission?: Yes (5) Severe dehydration Is this a current diagnosis for this admission?: Yes - Additional Information Resuscitation Status: Full Code Discharge Diet: Diabetic Discharge Activity: Activity As Tolerated Home Medications: Alcohol Antiseptic Pads [Alcohol Prep Pads] 1 each ASDIR PRN #1 pkg 10/20/16 Blood Sugar Diagnostic [Glucose Test Strip] 1 each ACHS #1 pkg 10/20/16 Hum Insulin NPH/Reg Insulin Hm [Insulin 70-30 (NPH/Reg) 100 unit/mL] 25 unit SUBCUT BIDACBS #1 vial 10/20/16 Lancets [Fingerstix] 1 each ACHS #1 pkg 10/20/16 Metformin HCl [Glucophage 500 mg Tablet] 1,000 mg PO BIDACBS #120 tablet Syringe & Needle,Insulin,1 ml [Insulin Syringe] 1 each BID #1 pkg 10/20/16 History of Present Illness History of Present Illness: Please see H&P for full HPI Hospital Course Hospital Course: Patient is a 26-year-old [place] male who presented to the emergency department for evaluation of nausea, vomiting, weight loss, diarrhea, polyuria, polydipsia and was found to have DKA. Patient was admitted to the ICU and placed on insulin drip per protocol. Patient's gap closed nicely. Patient was visited by the drop hammer setter up. Again it was reiterated patient that his diabetes would not go away, and that he should continue on medication with follow-up. Patient's blood sugars improved nicely on metformin and 7030. Patient was able to demonstrate that he could drop his own insulin and give himself injections prior to discharge. [employer] explosive ordnance specialist service was used. Patient had no further complaints and was ready for discharge. Physical Exam Vital Signs: Temp Pulse Resp BP Pulse Ox 97.9 F 88 17 122/79 100 10/20/16 15:03 10/20/16 15:03 10/20/16 15:03 10/20/16 15:03 10/20/16 15:03 Intake & Output 10/19/16 10/20/16 10/21/16 06:59 06:59 06:59 Intake Total 4585 4577 Output Total 3425 1275 Balance 1160 3302 Weight 59.3 kg 59.3 kg 59.3 kg Exam: General: Awake alert and oriented x3, no acute respiratory distress HEENT: AT/NC, PERRL, EOMI, oropharynx is moist, pink, no scleral icterus, no conjunctival injection Neck: No JVD, trachea midline Chest: Clear to auscultation bilaterally, no wheezes rhonchi or rales CV: Regular rate and rhythm, normal S1 and S2, no murmur, rub, or gallop Abdomen: Soft, nontender to palpation, nondistended, active bowel sounds; no rebound, rigidity, or guarding Extremities: No cyanosis, clubbing or edema Neuro: Cranial nerves II through XII are grossly intact without focal deficits; awake alert and oriented x3 Psych: Normal mood and affect Results Laboratory Results: 10/19/16 04:29 10/20/16 12:23 10/19/16 10/20/16 10/20/16 21:35 04:20 04:20 Sodium 142.7 Potassium 2.7 L* D Chloride 109 H Carbon Dioxide 24 Anion Gap 10 BUN 7 Creatinine 0.46 L Est GFR ( Amer) > 60 Est GFR (Non-Af Amer) > 60 Glucose 127 H Calcium 8.4 Magnesium 1.8 Urine Color STRAW Urine Appearance CLEAR Urine pH 6.0 Ur Specific [place] 1.015 Urine Protein NEGATIVE Urine Glucose (UA) >=500 H Urine Ketones 80 H Urine Blood NEGATIVE Urine Nitrite NEGATIVE Ur Leukocyte Esterase NEGATIVE Urine WBC (Auto) 0 10/20/16 12:23 Sodium 140.8 Potassium 3.7 D Chloride 106 Carbon Dioxide 25 Anion Gap 10 BUN 8 Creatinine 0.60 Est GFR ( Amer) > 60 Est GFR (Non-Af Amer) > 60 Glucose 184 H Calcium 9.7 Magnesium Urine Color Urine Appearance Urine pH Ur Specific [place] Urine Protein Urine Glucose (UA) Urine Ketones Urine Blood Urine Nitrite Ur Leukocyte Esterase Urine WBC (Auto) Impressions: Chest X-Ray 10/18/16 00:00 IMPRESSION: No acute radiographic finding in the chest. Qualifiers PATEINT BEING DISCHARGED WITH ANY OF THE FOLLOWING DIAGNOSIS?: No Plan Time Spent: Less than 30 Minutes
== END 2016-10-20 15:35 | disposition home or self-care (01) | DRG 638 ==
LOC: ER 23:20 → UNDOADMIN 10-18 02:26 → EH 10-18 02:26 → ICU 10-18 04:43 → 4N 10-19 11:31
PROVIDERS: ADMIT Family Medicine; ATTEND Family Medicine
DX: E13.10 Other specified diabetes mellitus with ketoacidosis without coma (principal); E87.0 Hyperosmolality and hypernatremia; E86.0 Dehydration; E87.5 Hyperkalemia; R63.1 Polydipsia; R35.8 Other polyuria; R00.0 Tachycardia, unspecified; R63.4 Abnormal weight loss; F32.9 Major depressive disorder, single episode, unspecified; F17.210 Nicotine dependence, cigarettes, uncomplicated; Z68.23 Body mass index [BMI] 23.0-23.9, adult
CPT/HCPCS: 36415; 36600; 71010; 80048; 80053; 80061; 80076; 80307; 81001; 82803; 82962; 83036; 83690; 83735; 84132; 84484; 85025; 87040; 87086; 93005; 93010; 96361; 96374; 99285; J1650; J1815; J2405; J3490; J7030; S0028

== ENCOUNTER 2019-03-21 21:13 | Inpatient (IN) | payer OTHER ==
--- NOTE | 2019-03-21 22:06 | ER Document Report ---
ED Medical Screen (RME) - General Chief Complaint: Nausea/Vomiting Stated Complaint: TROUBLE BREATHING AND DIABETES Time Seen by Provider: 03/21/19 21:56 TRAVEL OUTSIDE OF THE [place] IN LAST 30 DAYS: No - HPI Notes: 03/21/19 22:05 29-year-old male with history of diabetes to the emergency department with a friend with complaints of progressively worsening nausea, vomiting, shortness of breath, chest pain that began to get worse over the past week. Apparently he was seen 2 weeks ago for his diabetes and placed on insulin injection. He did not get the medicine until yesterday. He is only had one dose of it. He has not been on any medicines for almost 2 weeks. Friend states that every time he tries to eat he vomits. He states that the vomit is dark in color. They denied any fevers, chills, diarrhea. I performed a brief medical screening exam on the patient and determined that he will need main side provider further management and evaluation. Patient is slightly fruity in smell and very dehydrated. He is tachypneic and tachycardic. Very concerning for diabetic ketoacidosis. I have notified my main side ER physician as well. I have placed initial orders to help expedite in his care - Related Data Allergies/Adverse Reactions: No Known Allergies Allergy (Verified 10/17/16 23:30) Past Medical History - Past Medical History Cardiac Medical History: Denies: Hx Congestive Heart Failure, Hx Heart Attack, Hx Hypercholesterolemia, Hx Hypertension Pulmonary Medical History: Denies: Hx Asthma, Hx COPD Neurological Medical History: Denies: Hx Seizures Endocrine Medical History: Denies: Hx Diabetes Mellitus Type 1, Hx Diabetes Mellitus Type 2, Hx Hyperthyroidism, Hx Hypothyroidism Renal/ Medical History: Denies: Hx Peritoneal Dialysis GI Medical History: Denies: Hx Cirrhosis, Hx Gastroesophageal Reflux Disease, Hx Hepatitis Musculoskeltal Medical History: Denies Hx Arthritis Psychiatric Medical History: Reports: Hx Depression Infectious Medical History: Denies: Hx Hepatitis Physical Exam - Vital signs Vitals: Temp Pulse Resp BP Pulse Ox 98.1 F 137 H 22 H 137/80 H 99 03/21/19 21:38 03/21/19 21:38 03/21/19 21:38 03/21/19 21:38 03/21/19 21:38 Course - Vital Signs Vital signs: Temp Pulse Resp BP Pulse Ox 98.1 F 137 H 26 H 137/80 H 99 03/21/19 21:38 03/21/19 21:38 03/21/19 21:58 03/21/19 21:38 03/21/19 21:38 - Laboratory Laboratory results interpreted by me: 03/21/19 21:24 POC Glucose 370 H
[2019-03-21 22:28] LABS: ABSOLUTE MONOCYTES (AUTO) 0.7 10^3/uL (0.1-1.4); ABSOLUTE NEUT (AUTO) 9.6 10^3/uL (1.7-8.2); BASOPHILS % (AUTO) 0.3 % (0-2); HEMOGLOBIN 18.8 g/dL (13.5-17.0); LYMPHOCYTES % (AUTO) 9.1 % (13-45); MEAN CORPUSCULAR HEMOGLOBIN 31.5 pg (27.0-33.4); MEAN CORPUSCULAR HGB CONC 33.9 g/dL (32.0-36.0); MEAN CORPUSCULAR VOLUME 93 fl (80-97); MONOCYTES % (AUTO) 6.4 % (3-13); PLATELET COUNT 281 10^3/uL (150-450); RED BLOOD COUNT 5.96 10^6/uL (4.35-5.55); RED CELL DISTRIBUTION WIDTH 13.6 % (11.5-14.0); SEGMENTED NEUTROPHILS % (AUTO) 84.2 % (42-78); TOTAL CELLS COUNTED % (AUTO) 100 %; WHITE BLOOD COUNT 11.4 10^3/uL (4.0-10.5)
[2019-03-21] MEDS: NORMAL SALINE 1000 ML 1,000 ML IV PRN ×2 (22:31→22:35)
[2019-03-21 22:34] LABS: HEMATOCRIT 55.3 % (37.9-51.0)
[2019-03-21 22:38] LABS: VENOUS BLOOD BASE EXCESS -22.3 mmol/L; VENOUS BLOOD PCO2 26.6 mmHg (35-63)
[2019-03-21 22:40] LABS: VENOUS BLOOD PH 7.04 (7.30-7.42)
[2019-03-21] MEDS ORDERED: INSULIN REG, HUMAN 100 UNIT/ML 3 ML VIAL (PYX) ONE (22:46)
[2019-03-21 22:50] LABS: ALBUMIN 5.1 g/dL (3.5-5.0); ALKALINE PHOSPHATASE 143 U/L (38-126); ASPARTATE AMINO TRANSFERASE 23 U/L (17-59); BILIRUBIN,DIRECT 0.3 mg/dL (0.0-0.4); BILIRUBIN,TOTAL 0.8 mg/dL (0.2-1.3); BLOOD UREA NITROGEN 19 mg/dL (7-20); CALCIUM 9.6 mg/dL (8.4-10.2); CHLORIDE 99 mmol/L (98-107); GLUCOSE 399 mg/dL (75-110); TOTAL PROTEIN 8.7 g/dL (6.3-8.2)
[2019-03-21] MEDS: NORMAL SALINE 100 ML with INSULIN REGULAR, HUMAN 100 UNIT IV PRN ×2 (22:55)
--- NOTE | 2019-03-21 23:03 | RADIOLOGY REPORT (SQ) ---
EXAM DESCRIPTION: XR CHEST 1 VIEW COMPLETED DATE/TME: 03/21/2019 22:00 CLINICAL HISTORY: 29 years Male, SOB, chest pain COMPARISON:Oct 18 2016 NUMBER OF VIEWS/TECHNIQUE: 1/AP FINDINGS: Adequate lung volume, clear parenchyma, normal cardiac silhouette, and intact bony thorax. IMPRESSION: No acute cardiopulmonary findings.
[2019-03-21 23:05] LABS: APPEARANCE,URINE SLIGHTLY-CLOUDY; BILIRUBIN,URINE NEGATIVE (NEGATIVE); COLOR,URINE YELLOW; GLUCOSE, URINE >=500 mg/dL (NEGATIVE); KETONES,URINE 80 mg/dL (NEGATIVE); PROTEIN,URINE 100 mg/dL (NEGATIVE); URINE SPECIFIC GRAVITY 1.017; UROBILINOGEN,URINE NEGATIVE mg/dL (<2.0)
[2019-03-21 23:05] LABS: POTASSIUM 5.1 mmol/L (3.6-5.0)
[2019-03-21 23:07] LABS: CARBON DIOXIDE < 5 mmol/L (22-30)
[2019-03-22] MEDS ORDERED: POTASSI CL 20 MEQ/D5-1/2NS 1L 1,000 ML IV ONE (00:08)
--- NOTE | 2019-03-22 01:09 | ER Document Report ---
ED General - General Chief Complaint: Nausea/Vomiting Stated Complaint: TROUBLE BREATHING AND DIABETES Time Seen by Provider: 03/21/19 21:56 TRAVEL OUTSIDE OF THE [place] IN LAST 30 DAYS: No - HPI Notes: Patient is a 29-year-old male who presents to the emergency department for evaluation. History is obtained through his brother, as the patient does not speak [place]. In short, he was diagnosed with diabetes a few years ago. Initially he was started on insulin, then changed to oral medications. Shortly afterwards he was told that he did not require any sort of medications. He was off medicines for about a year. Over the last few weeks he started feeling poorly. He was feeling weak. He saw her primary care doctor, was restarted on Lantus. He started his Lantus last night. He continues to feel weak, can barely stand, polyuria, nausea, vomiting, abdominal pain. - Related Data Allergies/Adverse Reactions: No Known Allergies Allergy (Verified 10/17/16 23:30) Home Medications: Lantus Past Medical History - General Information source: Patient - Social History Smoking Status: Never Smoker Family History: Reviewed & Not Pertinent Patient has suicidal ideation: No Patient has homicidal ideation: No - Past Medical History Cardiac Medical History: Denies: Hx Congestive Heart Failure, Hx Heart Attack, Hx Hypercholesterolemia, Hx Hypertension Pulmonary Medical History: Denies: Hx Asthma, Hx COPD Neurological Medical History: Denies: Hx Seizures Endocrine Medical History: Reports: Hx Diabetes Mellitus Type 1, Hx Diabetes Mellitus Type 2 - Unclear as to what type of diabetic this patient is. Denies: Hx Hyperthyroidism, Hx Hypothyroidism Renal/ Medical History: Denies: Hx Peritoneal Dialysis GI Medical History: Denies: Hx Cirrhosis, Hx Gastroesophageal Reflux Disease, Hx Hepatitis Musculoskeletal Medical History: Denies Hx Arthritis Psychiatric Medical History: Reports: Hx Depression Infectious Medical History: Denies: Hx Hepatitis Review of Systems - Review of Systems Constitutional: See HPI EENT: No symptoms reported Cardiovascular: No symptoms reported Respiratory: No symptoms reported Gastrointestinal: See HPI Genitourinary: See HPI Musculoskeletal: No symptoms reported Skin: No symptoms reported Neurological/Psychological: No symptoms reported Physical Exam - Vital signs Vitals: Temp Pulse Resp BP Pulse Ox 98.1 F 137 H 22 H 137/80 H 99 03/21/19 21:38 03/21/19 21:38 03/21/19 21:38 03/21/19 21:38 03/21/19 21:38 - Notes Notes: This is a 29-year-old male who appears his stated age in a moderate amount of distress. He is tachypneic with [place]ul respirations, tachycardic, slow to respond to questions but alert and oriented x3. Vital signs reviewed, please refer to chart. Head is normocephalic, atraumatic. Pupils equal round, reactive to light. Oral mucosa is dry. Neck is supple without meningismus. Heart is regular rate and rhythm. Lungs are clear to auscultation bilaterally. Abdomen is soft, nontender, normoactive bowel sounds throughout. Extremities without cyanosis, clubbing. Posterior calves are nontender. Peripheral pulses are equal. Skin is warm and dry. Course - Re-evaluation Re-evalutation: 03/22/19 01:07 Patient presents emergency department for evaluation. He is a known diabetic, who presented to the emergency department tachypneic, tachycardic. I have a high concern for DKA. He was started on IV fluids. He received a 2 L normal saline bolus. Despite fluid resuscitation, patient remains tachycardic, remains tachypneic. Initial blood sugar was actually less than 400. He was started on an insulin drip and his bicarb was reported to be less than 5, and his venous pH was significantly low. Repeat blood sugar following insulin was just over 250. Patient's IV fluids were started at D5 half-normal saline with 20 of potassium. This was started at 200 and hour. I spoke with Dr. Varela, as well as ARPITA Guzman, both intensivists. They will accept the patient for further care. 03/22/19 01:08 - Vital Signs Vital signs: Temp Pulse Resp BP Pulse Ox 98.1 F 137 H 31 H 126/83 H 99 03/21/19 21:38 03/21/19 21:38 03/22/19 00:15 03/22/19 00:15 03/22/19 00:15 - Laboratory Result Diagrams: 03/21/19 22:06 03/21/19 22:06 Laboratory results interpreted by me: 03/21/19 03/21/19 03/21/19 20:54 21:24 22:06 WBC 11.4 H RBC 5.96 H Hgb 18.8 H Hct 55.3 H Lymph % (Auto) 9.1 L Absolute Neuts (auto) 9.6 H Seg Neutrophils % 84.2 H VBG pH VBG pCO2 VBG HCO3 Potassium Carbon Dioxide Glucose POC Glucose 370 H Alkaline Phosphatase Total Protein Albumin Urine Protein 100 H Urine Glucose (UA) >=500 H Urine Ketones 80 H Urine Blood SMALL H 03/21/19 03/21/19 03/22/19 22:06 22:06 00:01 WBC RBC Hgb Hct Lymph % (Auto) Absolute Neuts (auto) Seg Neutrophils % VBG pH 7.04 L* VBG pCO2 26.6 L VBG HCO3 7.0 L Potassium 5.1 H Carbon Dioxide < 5 L* Glucose 399 H POC Glucose 257 H Alkaline Phosphatase 143 H Total Protein 8.7 H Albumin 5.1 H Urine Protein Urine Glucose (UA) Urine Ketones Urine Blood - EKG Interpretation by Me Additional EKG results interpreted by me: 03/22/19 01:08 Sinus tachycardia with rate of 120 bpm. Normal axis. LVH. Prolonged QT interval. No acute ST changes concerning for infarction. No old studies available for comparison. Critical Care Note - Critical Care Note Total time excluding time spent on procedures (mins): 40 Discharge - Discharge Clinical Impression: Severe dehydration Diabetic ketoacidosis Qualifiers: Diabetes mellitus type: other specified (including DANIELLE) Diabetes mellitus complication detail: without coma Qualified Code(s): E13.10 - Other specified diabetes mellitus with ketoacidosis without coma Condition: Stable Disposition: ADMITTED INPATIENT Admitting Provider: Dr. Varela, specimen preparation assistant Unit Admitted: ICU
--- NOTE | 2019-03-22 01:39 | CRITICAL CARE ADMISSION REPORT ---
HPI Date:: 03/22/19 Time:: 01:00 Reason for ICU Reason:: DKA HPI: 29-year-old male with a history of diabetes. He was recently transitioned from insulin to oral medications but has unable to obtain his new prescriptions until yesterday. Patient's primary language is [employer] a [place] dialect, but seems to understand some Sinhala. Information regarding his HPI has been translated through a friend who is at his bedside. Patient's friend states that he has frequent vomiting and a possible history of a URI 2 weeks ago. CXR in ED showed no signs of infection. Patient was found to be in DKA with a HCO3 level less than 5 and elevated glucose levels. He was placed on insulin drip and fluid resuscitated. He is being admitted to the intensive care unit for continuation of insulin and treatment of his acute anion gap acidosis. History obtained from:: Patient's friend - Diagnosis/Plan (1) Diabetic ketoacidosis Qualifiers: Diabetes mellitus type: other specified (including DANIELLE) Diabetes mellitus complication detail: without coma Qualified Code(s): E13.10 - Other specified diabetes mellitus with ketoacidosis without coma Is this a current diagnosis for this admission?: Yes (2) Metabolic acidosis Is this a current diagnosis for this admission?: Yes Plan: Continue fluid resuscitation with D5 half-normal saline at 200 mL/h Monitor renal panel every 4 hours. Continue insulin drip until anion gap acidosis resolves. Replete electrolytes as needed. (3) Severe dehydration Is this a current diagnosis for this admission?: Yes Plan: Continue volume resuscitation with D5 one half normal saline at 200 m/hr. Monitor sodium levels and adjust fluids as needed. Past Medical History Past Medical History: Known history of diabetes. No other known significant past medical history. Cardiac Medical History: Denies: Congestive Heart Failure, Myocardial Infarction, Hyperlipidema, Hypertension Pulmonary Medical History: Denies: Asthma, Chronic Obstructive Pulmonary Disease (COPD) Neurological Medical History: Denies: Seizures Endocrine Medical History: Denies: Diabetes Mellitus Type 1, Diabetes Mellitus Type 2, Hyperthyroidism, Hypothyroidism GI Medical History: Denies: Cirrhosis, Gastroesophageal Reflux Disease, Hepatitis Musculoskeltal Medical History: Denies: Arthritis Psychiatric Medical History: Reports: Depression Social/Family History - Social History Social History Note: Patient is a [place] of [facility] and speaks primarily [employer] a Mayan dialect. He is accompanied by a friend who is able to translate. Smoking Status: Unknown if Ever Smoked Frequency of Alcohol Use: Social Hx Recreational Drug Use: No Drugs: None Hx Prescription Drug Abuse: No - Medication/Allergies Home Medications: Insulin Glargine,Hum.rec.anlog [Lantus Insulin 100 Unit/1 ml 10 ml] 0 unit SUBCUT ASDIR PRN 03/21/19 Allergies/Adverse Reactions: No Known Allergies Allergy (Verified 10/17/16 23:30) Review of Systems Review of Systems: Review of systems obtained through friend translation. Respiratory: PRESENT: other - Patient recognizes his rapid respiratory rate but states that he is not having any increased work of breathing and feels comfortable with his ability to breathe. Gastrointestinal: PRESENT: as per HPI, abdominal pain, nausea. ABSENT: diarrhea Endocrine: PRESENT: as per HPI Physical Exam Vital Signs: Temp Pulse Resp BP Pulse Ox 98.1 F 137 H 31 H 126/83 H 99 03/21/19 21:38 03/21/19 21:38 03/22/19 00:15 03/22/19 00:15 03/22/19 00:15 Intake & Output 03/20/19 03/21/19 03/22/19 06:59 06:59 06:59 Intake Total 2006 Balance 2006 Weight 48.5 kg Weight/Height Weight 48.5 kg Height 5 ft General appearance: PRESENT: cooperative, mild distress, thin Head exam: PRESENT: atraumatic, normocephalic Eye exam: PRESENT: PERRLA Mouth exam: PRESENT: dry mucosa Neck exam: PRESENT: full ROM. ABSENT: JVD, tenderness Respiratory exam: PRESENT: clear to auscultation diya. ABSENT: accessory muscle use - Mild tachypnea, crackles, rales, rhonchi Cardiovascular exam: PRESENT: tachycardia, other - Normal rhythm Pulses: PRESENT: normal radial pulses GI/Abdominal exam: PRESENT: soft. ABSENT: ascites, distended, tenderness Extremities exam: ABSENT: joint swelling, pedal edema, tenderness Musculoskeletal exam: PRESENT: ambulatory, normal inspection. ABSENT: tenderness Neurological exam: PRESENT: alert, oriented to situation, CN II-XII grossly intact Psychiatric exam: PRESENT: other - Unable to perform adequate psychiatric exam due to language barrier. Skin exam: PRESENT: intact, warm. ABSENT: abrasion, erythema, pallor, rash Laboratory/Radiographs Laboratory Results: 03/21/19 22:06 03/21/19 22:06 03/21/19 03/21/19 03/21/19 20:54 22:06 22:06 WBC 11.4 H RBC 5.96 H Hgb 18.8 H Hct 55.3 H MCV 93 MCH 31.5 MCHC 33.9 RDW 13.6 Plt Count 281 Seg Neutrophils % 84.2 H VBG pH VBG pCO2 VBG HCO3 VBG Base Excess Sodium 137.5 Potassium 5.1 H Chloride 99 Carbon Dioxide < 5 L* Anion Gap Not Reportable BUN 19 Creatinine 1.24 Est GFR ( Amer) > 60 Glucose 399 H Lactic Acid Calcium 9.6 Total Bilirubin 0.8 AST 23 Alkaline Phosphatase 143 H Total Protein 8.7 H Albumin 5.1 H Urine Color YELLOW Urine Appearance SLIGHTLY-CLOUDY Urine pH 5.0 Ur Specific [place] 1.017 Urine Protein 100 H Urine Glucose (UA) >=500 H Urine Ketones 80 H Urine Blood SMALL H 03/21/19 03/21/19 22:06 22:06 WBC RBC Hgb Hct MCV MCH MCHC RDW Plt Count Seg Neutrophils % VBG pH 7.04 L* VBG pCO2 26.6 L VBG HCO3 7.0 L VBG Base Excess -22.3 Sodium Potassium Chloride Carbon Dioxide Anion Gap BUN Creatinine Est GFR ( Amer) Glucose Lactic Acid 2.1 Calcium Total Bilirubin AST Alkaline Phosphatase Total Protein Albumin Urine Color Urine Appearance Urine pH Ur Specific [place] Urine Protein Urine Glucose (UA) Urine Ketones Urine Blood 03/21/19 22:06 Troponin I < 0.012 Impressions: Chest X-Ray 03/21/19 22:00 IMPRESSION: No acute cardiopulmonary findings. All labs, radiographs, diagnostic studies and EKGs were personally reviewed: Yes In addition, reports of radiographic and diagnostic studies were read: Yes Critical Time Critical Time (minutes): 70 -: The care of a critically ill patient is dynamic. This note represents a static moment in the admission process. Orders and treatments may be given simulta neously and urgently, and time is not wholesale representative of the treatment process. This patient requires Critical Care secondary to life threatening organ or limb dysfunction. Without Critical Care services, the patient is at risk for increased mortality and morbidity.
[2019-03-22] MEDS ORDERED: DEXTROSE 5%-1/2 NORMAL SALINE 1,000 ML IV PRN (01:41)
[2019-03-22 02:30] LABS: BLOOD UREA NITROGEN 14 mg/dL (7-20); CALCIUM 7.5 mg/dL (8.4-10.2); GLUCOSE 313 mg/dL (75-110); POTASSIUM 4.3 mmol/L (3.6-5.0)
[2019-03-22 02:36] LABS: CHLORIDE 112 mmol/L (98-107)
[2019-03-22 02:43] LABS: CARBON DIOXIDE 6 mmol/L (22-30)
[2019-03-22 02:53] LABS: ANION GAP 21 (5-19)
[2019-03-22] MEDS ORDERED: INFLUENZA QUAD (6MOS+) 2019-20 VAC 0.5 ML SYR IM ONE (03:35)
[2019-03-22] MEDS ORDERED: DEXTROSE 40% GEL 15 GM TUBE PO PRN ×6 (04:59→20:43)
[2019-03-22] MEDS ORDERED: DEXTROSE 50%-WATER 25 GM/50 ML DISP.SYRIN IV PRN ×6 (04:59→20:43)
[2019-03-22] MEDS ORDERED: GLUCAGON,HUMAN RECOMB 1 MG INJ SUBCUT PRN (04:59)
[2019-03-22 07:11] LABS: ANION GAP 12 (5-19); BLOOD UREA NITROGEN 12 mg/dL (7-20); CALCIUM 8.1 mg/dL (8.4-10.2); CARBON DIOXIDE 11 mmol/L (22-30); CHLORIDE 115 mmol/L (98-107); GLUCOSE 233 mg/dL (75-110); POTASSIUM 3.5 mmol/L (3.6-5.0)
[2019-03-22] MEDS ORDERED: INSULIN REG, HUMAN 100 UNIT/ML 3 ML VIAL (PYX) ONE ×2 (07:33→22:58)
[2019-03-22] MEDS: NORMAL SALINE 100 ML with INSULIN REGULAR, HUMAN 100 UNIT IV PRN ×4 (07:36→23:18)
[2019-03-22] MEDS ORDERED: GLUCAGON,HUMAN RECOMB 1 MG INJ IM PRN ×2 (08:11→20:43)
[2019-03-22] MEDS ORDERED: INSULIN GLARGINE,HUM.REC.ANLOG 1,000 UNIT/10 ML VIAL SUBCUT SCH (10:00)
--- NOTE | 2019-03-22 10:09 | PDOC CRITICAL CARE PROG REPORT ---
General Date:: 03/22/19 - Critical Care Attending Note Resuscitation Status: Full Code Events in the past 12 to 24 Hours:: No acute overnight events. Reason for ICU Addmission:: DKA - Medications: Medications reviewed and adjusted accordingly: Yes Physical Exam Vital Signs: Temp Pulse Resp BP Pulse Ox 98.3 F 90 17 105/77 99 03/22/19 08:00 03/22/19 08:00 03/22/19 08:00 03/22/19 08:00 03/22/19 08:00 Intake & Output 03/21/19 03/22/19 03/23/19 06:59 06:59 06:59 Intake Total 2047 554 Output Total 900 0 Balance 1147 554 Weight 50.1 kg Weight/Height Weight 50.1 kg Height 5 ft General appearance: PRESENT: no acute distress, well-developed, well-nourished, other - awake, alert, NAD Head exam: PRESENT: atraumatic, normocephalic Respiratory exam: PRESENT: clear to auscultation diya, unlabored Cardiovascular exam: PRESENT: RRR GI/Abdominal exam: PRESENT: soft Extremities exam: PRESENT: other - no edema Neurological exam: PRESENT: alert, awake, CN II-XII grossly intact Laboratory/Radiographs Laboratory Results: 03/21/19 22:06 03/22/19 06:31 03/21/19 03/21/19 03/21/19 20:54 22:06 22:06 WBC 11.4 H RBC 5.96 H Hgb 18.8 H Hct 55.3 H MCV 93 MCH 31.5 MCHC 33.9 RDW 13.6 Plt Count 281 Seg Neutrophils % 84.2 H VBG pH VBG pCO2 VBG HCO3 VBG Base Excess Sodium 137.5 Potassium 5.1 H Chloride 99 Carbon Dioxide < 5 L* Anion Gap Not Reportable BUN 19 Creatinine 1.24 Est GFR ( Amer) > 60 Glucose 399 H Lactic Acid Calcium 9.6 Total Bilirubin 0.8 AST 23 Alkaline Phosphatase 143 H Total Protein 8.7 H Albumin 5.1 H Urine Color YELLOW Urine Appearance SLIGHTLY-CLOUDY Urine pH 5.0 Ur Specific [place] 1.017 Urine Protein 100 H Urine Glucose (UA) >=500 H Urine Ketones 80 H Urine Blood SMALL H 03/21/19 03/21/19 03/22/19 22:06 22:06 02:01 WBC RBC Hgb Hct MCV MCH MCHC RDW Plt Count Seg Neutrophils % VBG pH 7.04 L* VBG pCO2 26.6 L VBG HCO3 7.0 L VBG Base Excess -22.3 Sodium 138.5 Potassium 4.3 Chloride 112 H Carbon Dioxide 6 L* Anion Gap 21 H BUN 14 Creatinine 0.83 Est GFR ( Amer) > 60 Glucose 313 H Lactic Acid 2.1 Calcium 7.5 L Total Bilirubin AST Alkaline Phosphatase Total Protein Albumin Urine Color Urine Appearance Urine pH Ur Specific [place] Urine Protein Urine Glucose (UA) Urine Ketones Urine Blood 03/22/19 06:31 WBC RBC Hgb Hct MCV MCH MCHC RDW Plt Count Seg Neutrophils % VBG pH VBG pCO2 VBG HCO3 VBG Base Excess Sodium 138.1 Potassium 3.5 L Chloride 115 H Carbon Dioxide 11 L Anion Gap 12 BUN 12 Creatinine 0.55 Est GFR ( Amer) > 60 Glucose 233 H Lactic Acid Calcium 8.1 L Total Bilirubin AST Alkaline Phosphatase Total Protein Albumin Urine Color Urine Appearance Urine pH Ur Specific [place] Urine Protein Urine Glucose (UA) Urine Ketones Urine Blood 03/21/19 22:06 Troponin I < 0.012 Impressions: Chest X-Ray 03/21/19 22:00 IMPRESSION: No acute cardiopulmonary findings. Assessment and Plan - Diagnosis (1) Diabetic ketoacidosis Qualifiers: Diabetes mellitus type: other specified (including DANIELLE) Diabetes mellitus complication detail: without coma Qualified Code(s): E13.10 - Other specified diabetes mellitus with ketoacidosis without coma Is this a current diagnosis for this admission?: Yes Plan Summary: Assessment: 29 yo man with Type II DM, DKA. Plan: 1. Respiratory: stable on NC 2. CV: heart rate and BP acceptable 3. Endocrine: Type II DM. DKA-resolved. Will d/c insulin drip and start lantus and SSI. 4. Nutrition: diabetic diet 5. Prophylaxis: pt is ambulatory 6. Disposition: stable for transfer out of ICU. Critical Time Critical Time (minutes): 0 Level of Care: MEDICAL -: 1. The care of a critical patient is a dynamic process. This note is a customer solutions representative synopsis but static in nature. The timeframe for treatments given in order is not necessarily the actual time these treatments may have been done. 2. This patient requires critical care secondary to ongoing requirements for therapy not offered or safe outside the critical care environment. Transfer to a lower level of care will result in altered life or limb morbidity and mortality. 3. Multidisciplinary rounds completed. 4. ABCDE bundle addressed.
[2019-03-22] MEDS: INSULIN REG, HUMAN 100 UNIT/ML 3 ML VIAL (PYX) SUBCUT SCH ×2 (11:10→16:34)
[2019-03-22 12:51] LABS: ABSOLUTE EOSINOPHILS # (AUTO) 0.1 10^3/uL (0.0-0.6); ABSOLUTE LYMPHOCYTES (AUTO) 0.8 10^3/uL (0.5-4.7); ABSOLUTE MONOCYTES (AUTO) 0.8 10^3/uL (0.1-1.4); ABSOLUTE NEUT (AUTO) 5.4 10^3/uL (1.7-8.2); BASOPHILS % (AUTO) 0.2 % (0-2); EOSINOPHILS % (AUTO) 1.2 % (0-6); HEMATOCRIT 43.3 % (37.9-51.0); MEAN CORPUSCULAR HGB CONC 35.7 g/dL (32.0-36.0); MEAN CORPUSCULAR VOLUME 90 fl (80-97); MONOCYTES % (AUTO) 11.1 % (3-13); PLATELET COUNT 167 10^3/uL (150-450); RED BLOOD COUNT 4.84 10^6/uL (4.35-5.55); RED CELL DISTRIBUTION WIDTH 13.4 % (11.5-14.0); SEGMENTED NEUTROPHILS % (AUTO) 76.5 % (42-78); TOTAL CELLS COUNTED % (AUTO) 100 %
[2019-03-22 13:07] LABS: ANION GAP 14 (5-19); BLOOD UREA NITROGEN 10 mg/dL (7-20); CALCIUM 8.6 mg/dL (8.4-10.2); CARBON DIOXIDE 13 mmol/L (22-30); CHLORIDE 109 mmol/L (98-107); GLUCOSE 226 mg/dL (75-110); POTASSIUM 3.7 mmol/L (3.6-5.0)
[2019-03-22 13:23] LABS: HEMOGLOBIN 15.5 g/dL (13.5-17.0)
--- NOTE | 2019-03-22 14:27 | EKG REPORT ---
SEVERITY:- ABNORMAL ECG - SINUS TACHYCARDIA PROBABLE LEFT VENTRICULAR HYPERTROPHY INFERIOR Q WAVES, PROBABLY NORMAL VARIATION ANTERIOR ST ELEVATION, PROBABLY DUE TO LVH PROLONGED QT INTERVAL : Confirmed by: Monica Ga 22-Mar-2019 14:26:06
[2019-03-22 20:31] LABS: ANION GAP 18 (5-19); BLOOD UREA NITROGEN 12 mg/dL (7-20); CARBON DIOXIDE 12 mmol/L (22-30); CHLORIDE 106 mmol/L (98-107); GLUCOSE 277 mg/dL (75-110); POTASSIUM 3.4 mmol/L (3.6-5.0)
[2019-03-22] MEDS ORDERED: POTASSI CL 20 MEQ/D5NS 1L 20 MEQ/1,000 ML RTUINJ IV SCH (20:45)
[2019-03-22 21:37] LABS: ANION GAP 18 (5-19); BLOOD UREA NITROGEN 12 mg/dL (7-20); CARBON DIOXIDE 13 mmol/L (22-30); CHLORIDE 106 mmol/L (98-107); GLUCOSE 257 mg/dL (75-110); POTASSIUM 3.4 mmol/L (3.6-5.0)
[2019-03-22] MEDS: POTASSI CL 20 MEQ/D5NS 1L 20 MEQ/1,000 ML RTUINJ IV PRN (22:53)
[2019-03-23] MEDS ORDERED: POTASSIUM CHLORIDE 10 MEQ TABLET.ER PO ONE (01:00)
[2019-03-23] MEDS: POTASSI CL 20 MEQ/50 ML RIDER 20 MEQ/50 ML RTUPB IV SCH ×4 (02:33→10:54)
[2019-03-23] MEDS: POTASSI CL 20 MEQ/D5NS 1L 20 MEQ/1,000 ML RTUINJ IV PRN (02:47)
[2019-03-23 03:09] LABS: ABSOLUTE EOSINOPHILS # (AUTO) 0.3 10^3/uL (0.0-0.6); ABSOLUTE LYMPHOCYTES (AUTO) 1.1 10^3/uL (0.5-4.7); ABSOLUTE MONOCYTES (AUTO) 0.7 10^3/uL (0.1-1.4); ABSOLUTE NEUT (AUTO) 3.5 10^3/uL (1.7-8.2); BASOPHILS % (AUTO) 0.3 % (0-2); EOSINOPHILS % (AUTO) 5.8 % (0-6); HEMATOCRIT 39.4 % (37.9-51.0); HEMOGLOBIN 14.2 g/dL (13.5-17.0); LYMPHOCYTES % (AUTO) 19.3 % (13-45); MEAN CORPUSCULAR HGB CONC 36.1 g/dL (32.0-36.0); MEAN CORPUSCULAR VOLUME 89 fl (80-97); MONOCYTES % (AUTO) 11.9 % (3-13); PLATELET COUNT 151 10^3/uL (150-450); RED BLOOD COUNT 4.45 10^6/uL (4.35-5.55); RED CELL DISTRIBUTION WIDTH 13.1 % (11.5-14.0); SEGMENTED NEUTROPHILS % (AUTO) 62.7 % (42-78); TOTAL CELLS COUNTED % (AUTO) 100 %; WHITE BLOOD COUNT 5.5 10^3/uL (4.0-10.5)
[2019-03-23 03:28] LABS: ANION GAP 7 (5-19); BLOOD UREA NITROGEN 7 mg/dL (7-20); CALCIUM 8.4 mg/dL (8.4-10.2); CARBON DIOXIDE 20 mmol/L (22-30); CHLORIDE 111 mmol/L (98-107); GLUCOSE 242 mg/dL (75-110); POTASSIUM 3.3 mmol/L (3.6-5.0)
[2019-03-23] MEDS ORDERED: INSULIN REG, HUMAN 100 UNIT/ML 3 ML VIAL (PYX) ONE (05:51)
[2019-03-23] MEDS: NORMAL SALINE 100 ML with INSULIN REGULAR, HUMAN 100 UNIT IV PRN ×2 (05:56)
[2019-03-23] MEDS ORDERED: ONDANSETRON HCL INJ/PF 4 MG/2 ML SDV IV PRN (07:51)
[2019-03-23] MEDS: METOCLOPRAMIDE HCL INJ/PF 10 MG/2 ML SDV IV SCH ×3 (09:10→17:24)
[2019-03-23] MEDS ORDERED: INSULIN GLARGINE,HUM.REC.ANLOG 1,000 UNIT/10 ML VIAL (PYX) SUBCUT ONE (09:15)
[2019-03-23 10:23] LABS: ANION GAP 10 (5-19); BLOOD UREA NITROGEN 5 mg/dL (7-20); CALCIUM 8.6 mg/dL (8.4-10.2); CARBON DIOXIDE 19 mmol/L (22-30); CHLORIDE 110 mmol/L (98-107); GLUCOSE 80 mg/dL (75-110); POTASSIUM 3.2 mmol/L (3.6-5.0)
[2019-03-23] MEDS ORDERED: GLUCAGON,HUMAN RECOMB 1 MG INJ IM PRN (10:33)
[2019-03-23] MEDS ORDERED: DEXTROSE 50%-WATER 25 GM/50 ML DISP.SYRIN IV PRN ×2 (10:33)
[2019-03-23] MEDS ORDERED: DEXTROSE 40% GEL 15 GM TUBE PO PRN ×2 (10:33)
[2019-03-23] MEDS ORDERED: NORMAL SALINE 1000 ML 1,000 ML IV ONE (10:47)
--- NOTE | 2019-03-23 10:52 | PDOC PROGRESS REPORT ---
Subjective Progress Note for:: 03/23/19 Subjective:: Briefly, patient is a 29-year-old male with a history of diabetes mellitus likely type I who presented to the hospital with complaints of abdominal pain nausea and vomiting as well as some feeling of shortness of breath which was likely from Kussmaul breathing. Patient was found to be in DKA thought to be precipitated by recent URI with significant metabolic acidosis pH of 7.0 and bicarbonate level of 7 and was admitted to the ICU started on insulin drip. Patient was downgraded from the unit yesterday night. At that time patient was noted to be having some abdominal pain and not able to tolerate p.o. Patient was noted to still be hyperglycemic and with anion gap of 18 showing persistence of DKA and was subsequently restarted on an insulin drip and transferred to the PCU. This morning, discussed with patient with help of patient's brother for translat ion. Patient states he is doing much better now and that his nausea has resolved. Abdominal pain has also resolved and he is willing to try eating some food. Reason For Visit: DKA Physical Exam Vital Signs: Temp Pulse Resp BP Pulse Ox 98.3 F 88 16 113/67 99 03/23/19 07:59 03/23/19 07:59 03/23/19 07:59 03/23/19 07:59 03/23/19 07:59 Intake & Output 03/22/19 03/23/19 03/24/19 06:59 06:59 06:59 Intake Total 2047 1974 37 Output Total 900 2075 Balance 1147 -101 37 Weight 50.1 kg 48.2 kg General appearance: PRESENT: no acute distress, cooperative Neck exam: ABSENT: JVD Respiratory exam: PRESENT: clear to auscultation diya, symmetrical, unlabored. ABSENT: tachypnea, wheezes Cardiovascular exam: PRESENT: RRR, +S1, +S2. ABSENT: tachycardia GI/Abdominal exam: PRESENT: normal bowel sounds, soft. ABSENT: guarding, rebound, rigid, tenderness Neurological exam: PRESENT: alert, awake, oriented to person, oriented to place, oriented to time Psychiatric exam: ABSENT: agitated, anxious Results Laboratory Results: 03/23/19 03:01 03/23/19 09:17 03/22/19 03/22/19 03/22/19 12:30 12:30 20:04 WBC 7.0 RBC 4.84 Hgb 15.5 D Hct 43.3 MCV 90 MCH 32.0 MCHC 35.7 RDW 13.4 Plt Count 167 Seg Neutrophils % 76.5 Sodium 136.4 L 135.8 L Potassium 3.7 3.4 L Chloride 109 H 106 Carbon Dioxide 13 L 12 L Anion Gap 14 18 BUN 10 12 Creatinine 0.48 L 0.57 Est GFR ( Amer) > 60 > 60 Glucose 226 H 277 H Calcium 8.6 9.0 03/22/19 03/23/19 03/23/19 21:00 03:01 03:01 WBC 5.5 RBC 4.45 Hgb 14.2 Hct 39.4 MCV 89 MCH 32.0 MCHC 36.1 H RDW 13.1 Plt Count 151 Seg Neutrophils % 62.7 Sodium 137.0 138.4 Potassium 3.4 L 3.3 L Chloride 106 111 H Carbon Dioxide 13 L 20 L Anion Gap 18 7 BUN 12 7 Creatinine 0.54 0.45 L Est GFR ( Amer) > 60 > 60 Glucose 257 H 242 H Calcium 9.0 8.4 03/23/19 09:17 WBC RBC Hgb Hct MCV MCH MCHC RDW Plt Count Seg Neutrophils % Sodium 139.1 Potassium 3.2 L Chloride 110 H Carbon Dioxide 19 L Anion Gap 10 BUN 5 L Creatinine 0.36 L Est GFR ( Amer) > 60 Glucose 80 Calcium 8.6 03/21/19 22:06 Troponin I < 0.012 Impressions: Chest X-Ray 03/21/19 22:00 IMPRESSION: No acute cardiopulmonary findings. Assessment and Plan - Diagnosis (1) Diabetic ketoacidosis Qualifiers: Diabetes mellitus type: type 1 Diabetes mellitus complication detail: without coma Qualified Code(s): E10.10 - Type 1 diabetes mellitus with ketoacidosis without coma Is this a current diagnosis for this admission?: Yes Plan: Likely type I diabetic given body habitus and onset of age Check hemoglobin A1c DKA is now resolved, anion gap closed and will discontinue insulin drip after bridging with Lantus 15 units Sliding scale coverage, restricted carbohydrate diet We will transition patient's insulin regimen from Lantus to 70/30 insulin to allow for affordability-12 units with breakfast and 8 units with dinner Monitor with Accu-Cheks. (2) Metabolic acidosis Is this a current diagnosis for this admission?: Yes Plan: Improved significantly. Bicarb now 19. (3) Hypokalemia Is this a current diagnosis for this admission?: Yes Plan: Replete. Potassium chloride. - Time Time Spent with patient: 15-24 minutes
[2019-03-23] MEDS: POTASSIUM CHLORIDE 10 MEQ TABLET.ER PO SCH ×2 (10:57→19:52)
[2019-03-23] MEDS: INSULIN LISPRO 100 UNIT/ML 3 ML VIAL SUBCUT SCH ×3 (11:49→21:49)
[2019-03-23] MEDS ORDERED: HUM INSULIN NPH/REG INSULIN HM 100 UNIT/1 ML 3 ML SUBCUT SCH (16:00)
[2019-03-24] MEDS: METOCLOPRAMIDE HCL INJ/PF 10 MG/2 ML SDV IV SCH ×3 (03:06→13:11)
[2019-03-24 05:26] LABS: ANION GAP 11 (5-19); BLOOD UREA NITROGEN 9 mg/dL (7-20); CARBON DIOXIDE 25 mmol/L (22-30); CHLORIDE 101 mmol/L (98-107); GLUCOSE 190 mg/dL (75-110)
[2019-03-24 05:38] LABS: ABSOLUTE EOSINOPHILS # (AUTO) 0.8 10^3/uL (0.0-0.6); ABSOLUTE LYMPHOCYTES (AUTO) 1.9 10^3/uL (0.5-4.7); ABSOLUTE MONOCYTES (AUTO) 0.7 10^3/uL (0.1-1.4); ABSOLUTE NEUT (AUTO) 2.3 10^3/uL (1.7-8.2); BASOPHILS % (AUTO) 0.7 % (0-2); EOSINOPHILS % (AUTO) 13.5 % (0-6); HEMOGLOBIN 14.7 g/dL (13.5-17.0); LYMPHOCYTES % (AUTO) 33.1 % (13-45); MEAN CORPUSCULAR HEMOGLOBIN 31.8 pg (27.0-33.4); MEAN CORPUSCULAR HGB CONC 36.3 g/dL (32.0-36.0); MEAN CORPUSCULAR VOLUME 88 fl (80-97); MONOCYTES % (AUTO) 11.7 % (3-13); PLATELET COUNT 139 10^3/uL (150-450); RED BLOOD COUNT 4.64 10^6/uL (4.35-5.55); RED CELL DISTRIBUTION WIDTH 12.9 % (11.5-14.0); TOTAL CELLS COUNTED % (AUTO) 100 %; WHITE BLOOD COUNT 5.7 10^3/uL (4.0-10.5)
[2019-03-24 05:39] LABS: POTASSIUM 2.9 mmol/L (3.6-5.0)
[2019-03-24] MEDS: POTASSIUM CHLORIDE 20 MEQ/50 ML RTU IV SCH ×3 (06:34→11:19)
[2019-03-24 06:48] LABS: HEMATOCRIT 40.6 % (37.9-51.0)
[2019-03-24] MEDS ORDERED: POTASSIUM CHLORIDE 10 MEQ TABLET.ER PO ONE (07:00)
[2019-03-24] MEDS ORDERED: HUM INSULIN NPH/REG INSULIN HM 100 UNIT/1 ML 3 ML SUBCUT SCH ×3 (08:00→16:00)
[2019-03-24] MEDS: INSULIN LISPRO 100 UNIT/ML 3 ML VIAL SUBCUT SCH ×5 (08:24→21:23)
--- NOTE | 2019-03-24 12:02 | PDOC PROGRESS REPORT ---
Subjective Progress Note for:: 03/24/19 Subjective:: Patient feels well today. Denies any abdominal pain, shortness of breath, nausea or vomiting. Patient states that he has not taken his insulin in over a year. Reason For Visit: DKA Physical Exam Vital Signs: Temp Pulse Resp BP Pulse Ox 97.9 F 88 16 103/69 100 03/24/19 07:51 03/24/19 07:51 03/24/19 07:51 03/24/19 07:51 03/24/19 07:51 Intake & Output 03/23/19 03/24/19 03/25/19 06:59 06:59 06:59 Intake Total 1974 3742 97 Output Total 2075 Balance -101 3742 97 Weight 48.2 kg 48.9 kg General appearance: PRESENT: no acute distress, cooperative Neck exam: ABSENT: JVD Respiratory exam: PRESENT: clear to auscultation diya, unlabored. ABSENT: tachypnea, wheezes Cardiovascular exam: PRESENT: RRR, +S1, +S2. ABSENT: tachycardia GI/Abdominal exam: PRESENT: normal bowel sounds, soft. ABSENT: rebound, rigid, tenderness Neurological exam: PRESENT: alert, awake, oriented to person, oriented to place, oriented to time, oriented to situation Results Laboratory Results: 03/24/19 04:28 03/24/19 04:28 03/24/19 03/24/19 04:28 04:28 WBC 5.7 RBC 4.64 Hgb 14.7 Hct 40.6 MCV 88 MCH 31.8 MCHC 36.3 H RDW 12.9 Plt Count 139 L Seg Neutrophils % 41.0 L Sodium 136.5 L Potassium 2.9 L* Chloride 101 Carbon Dioxide 25 Anion Gap 11 BUN 9 Creatinine 0.35 L Est GFR ( Amer) > 60 Glucose 190 H Calcium 9.0 03/21/19 22:06 Troponin I < 0.012 Impressions: Chest X-Ray 03/21/19 22:00 IMPRESSION: No acute cardiopulmonary findings. Assessment and Plan - Diagnosis (1) Diabetic ketoacidosis Qualifiers: Diabetes mellitus type: type 1 Diabetes mellitus complication detail: without coma Qualified Code(s): E10.10 - Type 1 diabetes mellitus with ketoacidosis without coma Is this a current diagnosis for this admission?: Yes Plan: Likely type I diabetic given body habitus and age of onset hemoglobin A1c 10 DKA is now resolved, anion gap closed and off insulin drip Sliding scale coverage, restricted carbohydrate diet Insulin regimen adjusted to 7030 premixed insulin 50 units with breakfast and 10 units with dinner Monitor with Accu-Cheks. (2) Metabolic acidosis Is this a current diagnosis for this admission?: Yes Plan: Resolved (3) Hypokalemia Is this a current diagnosis for this admission?: Yes Plan: Potassium is significantly low today at 2.9. Likely from reintroduction of insulin. We will replete aggressively with IV and p.o. potassium chloride and recheck labs later today and in the morning. - Time Time Spent with patient: 15-24 minutes - Inpatient Certification Medical Necessity: Need For Continuous Telemetry Monitoring, Risk of Complication if Not Cared For in Hospital
[2019-03-24 16:38] LABS: ANION GAP 9 (5-19); BLOOD UREA NITROGEN 12 mg/dL (7-20); CALCIUM 8.6 mg/dL (8.4-10.2); CARBON DIOXIDE 26 mmol/L (22-30); CHLORIDE 102 mmol/L (98-107); GLUCOSE 274 mg/dL (75-110); POTASSIUM 3.6 mmol/L (3.6-5.0)
[2019-03-24 16:39] LABS: PHOSPHORUS 2.7 mg/dL (2.5-4.5)
[2019-03-25 06:24] LABS: ABSOLUTE EOSINOPHILS # (AUTO) 0.6 10^3/uL (0.0-0.6); ABSOLUTE LYMPHOCYTES (AUTO) 1.9 10^3/uL (0.5-4.7); ABSOLUTE MONOCYTES (AUTO) 0.5 10^3/uL (0.1-1.4); ABSOLUTE NEUT (AUTO) 2.3 10^3/uL (1.7-8.2); BASOPHILS % (AUTO) 0.7 % (0-2); EOSINOPHILS % (AUTO) 11.9 % (0-6); HEMATOCRIT 40.9 % (37.9-51.0); HEMOGLOBIN 14.8 g/dL (13.5-17.0); LYMPHOCYTES % (AUTO) 35.4 % (13-45); MEAN CORPUSCULAR HEMOGLOBIN 31.8 pg (27.0-33.4); MEAN CORPUSCULAR HGB CONC 36.2 g/dL (32.0-36.0); MEAN CORPUSCULAR VOLUME 88 fl (80-97); MONOCYTES % (AUTO) 8.7 % (3-13); PLATELET COUNT 142 10^3/uL (150-450); RED BLOOD COUNT 4.66 10^6/uL (4.35-5.55); RED CELL DISTRIBUTION WIDTH 12.9 % (11.5-14.0); SEGMENTED NEUTROPHILS % (AUTO) 43.3 % (42-78); TOTAL CELLS COUNTED % (AUTO) 100 %; WHITE BLOOD COUNT 5.2 10^3/uL (4.0-10.5)
[2019-03-25 06:44] LABS: ANION GAP 11 (5-19); BLOOD UREA NITROGEN 11 mg/dL (7-20); CALCIUM 9.1 mg/dL (8.4-10.2); CARBON DIOXIDE 25 mmol/L (22-30); CHLORIDE 100 mmol/L (98-107); GLUCOSE 222 mg/dL (75-110); POTASSIUM 3.6 mmol/L (3.6-5.0)
[2019-03-25] MEDS: INSULIN LISPRO 100 UNIT/ML 3 ML VIAL SUBCUT SCH (08:11)
[2019-03-25] MEDS ORDERED: HUM INSULIN NPH/REG INSULIN HM 100 UNIT/1 ML 3 ML SUBCUT SCH ×2 (09:00→16:00)
[2019-03-25] MEDS ORDERED: POTASSIUM CHLORIDE 10 MEQ TABLET.ER PO SCH (10:00)
--- NOTE | 2019-03-25 11:23 | PDOC DISCHARGE SUMMARY ---
Impression - Admit/DC Date/PCP Admission Date/Primary Care Provider: 03/22/19 01:36 Discharge Date: 03/25/19 - Discharge Diagnosis (1) Diabetic ketoacidosis Is this a current diagnosis for this admission?: Yes (2) Metabolic acidosis Is this a current diagnosis for this admission?: Yes (3) Hypokalemia Is this a current diagnosis for this admission?: Yes - Assessment Summary: 29-year-old male with a history of diabetes mellitus likely type I who presented to the hospital with complaints of abdominal pain nausea and vomiting as well as some feeling of shortness of breath which was likely from Kussmaul breathing. Patient was found to be in DKA thought to be precipitated by recent URI with significant metabolic acidosis pH of 7.0 and bicarbonate level of 7 and was admitted to the ICU started on insulin drip. Patient was downgraded from the unit. At that time patient was noted to be having some abdominal pain and not able to tolerate p.o. Patient was noted to still be hyperglycemic and with anion gap of 18 showing persistence of DKA and was subsequently restarted on an insulin drip and transferred to the IMCU. In the IMCU, repeat blood work showed that the anion gap had closed. Patient was transitioned to premix insulin 70/30 for bridge, started on diet and insulin drip was discontinued. Patient's premixed insulin 70/30 has been uptitrated to achieve an acceptable blood sugars upon discharge. Discussion was had with patient's and patient states that he has no difficulty getting insulin but has not taken insulin in over a year because he felt he did not need it. However he is willing to start taking insulin once again especially given that he is hemoglobin A1c is over 10. Patient has been discharged on a NovoLog 70/30 FlexPen 18 units before breakfast and 12 units before dinner. Patient has also been given a prescription to hot die picker a glucometer device, test strips lancing device/lancets and referral to the [facility] for further follow- up. - Additional Information Resuscitation Status: Full Code Discharge Diet: Diabetic Discharge Activity: Activity As Tolerated Ref[facility]: [facility] [NO [facility]AL MD[facility] - Prescriptions: Insulin Aspart Prot/Insuln Asp [Novolog Mix 70-30 Flexpen Syrn] See Protocol SQ BIDACBSP PRN #10 ml PRN Reason: Home Medications: Insulin Aspart Prot/Insuln Asp [Novolog Mix 70-30 Flexpen Syrn] See Protocol SQ BIDACBSP PRN #10 ml 03/25/19 History of Present Illiness History of Present Illness: DINORAH UMANA is a 29 year old male with a history of diabetes. He was recently transitioned from insulin to oral medications but has unable to obtain his new prescriptions until yesterday. Patient's primary language is [facility], a dialect in Naun and cymro, but seems to understand some [place]. Information regarding his HPI has been translated through a friend who is at his bedside. Patient's friend states that he has frequent vomiting and a possible history of a URI 2 weeks ago. CXR in ED showed no signs of infection. Patient was found to be in DKA with a HCO3 level less than 5 and elevated glucose levels. He was placed on insulin drip and fluid resuscitated. He is being admitted to the intensive care unit for continuation of insulin and treatment of his acute anion gap acidosis. Physical Exam Vital Signs: Temp Pulse Resp BP Pulse Ox 97.7 F 77 18 104/71 100 03/25/19 08:08 03/25/19 08:08 03/25/19 08:08 03/25/19 08:08 03/25/19 08:08 Intake & Output 03/24/19 03/25/19 03/26/19 06:59 06:59 06:59 Intake Total 3742 1640 Balance 3742 1640 Weight 48.9 kg 50.1 kg General appearance: PRESENT: no acute distress, cooperative Neck exam: ABSENT: JVD Respiratory exam: PRESENT: clear to auscultation diya GI/Abdominal exam: PRESENT: soft. ABSENT: tenderness Results Laboratory Results: WBC 5.2 10^3/uL (4.0-10.5) 03/25/19 05:54 RBC 4.66 10^6/uL (4.35-5.55) 03/25/19 05:54 Hgb 14.8 g/dL (13.5-17.0) 03/25/19 05:54 Hct 40.9 % (37.9-51.0) 03/25/19 05:54 MCV 88 fl (80-97) 03/25/19 05:54 MCH 31.8 pg (27.0-33.4) 03/25/19 05:54 MCHC 36.2 g/dL (32.0-36.0) H 03/25/19 05:54 RDW 12.9 % (11.5-14.0) 03/25/19 05:54 Plt Count 142 10^3/uL (150-450) L 03/25/19 05:54 Lymph % (Auto) 35.4 % (13-45) 03/25/19 05:54 [place] % (Auto) 8.7 % (3-13) 03/25/19 05:54 Eos % (Auto) 11.9 % (0-6) H 03/25/19 05:54 Baso % (Auto) 0.7 % (0-2) 03/25/19 05:54 Absolute Neuts (auto) 2.3 10^3/uL (1.7-8.2) 03/25/19 05:54 Absolute Lymphs (auto) 1.9 10^3/uL (0.5-4.7) 03/25/19 05:54 Absolute Monos (auto) 0.5 10^3/uL (0.1-1.4) 03/25/19 05:54 Absolute Eos (auto) 0.6 10^3/uL (0.0-0.6) 03/25/19 05:54 Absolute Basos (auto) 0.0 10^3/uL (0.0-0.2) 03/25/19 05:54 Seg Neutrophils % 43.3 % (42-78) 03/25/19 05:54 VBG pH 7.04 (7.30-7.42) L* 03/21/19 22:06 VBG pCO2 26.6 mmHg (35-63) L 03/21/19 22:06 VBG HCO3 7.0 mmol/L (20-32) L 03/21/19 22:06 VBG Base Excess -22.3 mmol/L 03/21/19 22:06 Sodium 136.4 mmol/L (137-145) L 03/25/19 05:54 Potassium 3.6 mmol/L (3.6-5.0) 03/25/19 05:54 Chloride 100 mmol/L (98-107) 03/25/19 05:54 Carbon Dioxide 25 mmol/L (22-30) 03/25/19 05:54 Anion Gap 11 (5-19) 03/25/19 05:54 BUN 11 mg/dL (7-20) 03/25/19 05:54 Creatinine 0.37 mg/dL (0.52-1.25) L 03/25/19 05:54 Est GFR ( Amer) > 60 (>60) 03/25/19 05:54 Est GFR (MDRD) Non-Af > 60 (>60) 03/25/19 05:54 Glucose 222 mg/dL (75-110) H 03/25/19 05:54 POC Glucose 232 mg/dL (70-110) H 03/25/19 08:07 Hemoglobin A1c % 10.6 % (4.7-6.0) H 03/24/19 04:28 Lactic Acid 2.1 mmol/L (0.7-2.1) 03/21/19 22:06 Calcium 9.1 mg/dL (8.4-10.2) 03/25/19 05:54 Phosphorus 2.7 mg/dL (2.5-4.5) 03/24/19 15:36 Magnesium 1.8 mg/dL (1.6-2.3) 03/24/19 15:36 Total Bilirubin 0.8 mg/dL (0.2-1.3) 03/21/19 22:06 Direct Bilirubin 0.3 mg/dL (0.0-0.4) 03/21/19 22:06 Neonat Total Bilirubin Not Reportable 03/21/19 22:06 Neonat Direct Bilirubin Not Reportable 03/21/19 22:06 Neonat Indirect Bili Not Reportable 03/21/19 22:06 AST 23 U/L (17-59) 03/21/19 22:06 ALT 19 U/L (<50) 03/21/19 22:06 Alkaline Phosphatase 143 U/L (38-126) H 03/21/19 22:06 Troponin I < 0.012 ng/mL 03/21/19 22:06 Total Protein 8.7 g/dL (6.3-8.2) H 03/21/19 22:06 Albumin 5.1 g/dL (3.5-5.0) H 03/21/19 22:06 Urine Color YELLOW 03/21/19 20:54 Urine Appearance SLIGHTLY-CLOUDY 03/21/19 20:54 Urine pH 5.0 (5.0-9.0) 03/21/19 20:54 Ur Specific [place] 1.017 03/21/19 20:54 Urine Protein 100 mg/dL (NEGATIVE) H 03/21/19 20:54 Urine Glucose (UA) >=500 mg/dL (NEGATIVE) H 03/21/19 20:54 Urine Ketones 80 mg/dL (NEGATIVE) H 03/21/19 20:54 Urine Blood SMALL (NEGATIVE) H 03/21/19 20:54 Urine Nitrite (Reflex) NEGATIVE (NEGATIVE) 03/21/19 20:54 Urine Bilirubin NEGATIVE (NEGATIVE) 03/21/19 20:54 Urine Urobilinogen NEGATIVE mg/dL (<2.0) 03/21/19 20:54 Leukocyte Esterase Rfl NEGATIVE (NEGATIVE) 03/21/19 20:54 U Hyaline Cast (Auto) 6 /LPF 03/21/19 20:54 Urine WBC (Reflex) < 1 /HPF 03/21/19 20:54 Squamous Epi Cells Auto 1 /HPF 03/21/19 20:54 Urine Mucus (Auto) RARE /LPF 03/21/19 20:54 Urine Ascorbic Acid NEGATIVE (NEGATIVE) 03/21/19 20:54 03/21/19 22:06 Troponin I < 0.012 Impressions: Chest X-Ray 03/21/19 22:00 IMPRESSION: No acute cardiopulmonary findings. Plan Time Spent: Less than 30 Minutes Stroke Is this a Stroke Patient?: No Acute Heart Failure - Is this a Heart Failure Patient?: No
[2019-03-25 11:48] VITALS: BP 114/72
== END 2019-03-25 13:30 | disposition home or self-care (01) | DRG 639 ==
LOC: ER 21:13 → EH 03-22 01:36 → ICU 03-22 02:32 → 4W 03-22 19:05 → 3W 03-22 22:22
PROVIDERS: ADMIT Internal Medicine; ATTEND Internal Medicine
DX: E10.10 Type 1 diabetes mellitus with ketoacidosis without coma (principal); E87.6 Hypokalemia; E86.0 Dehydration; Z79.4 Long term (current) use of insulin
CPT/HCPCS: 36415; 71045; 80048; 80053; 81001; 82803; 82962; 83036; 83605; 83735; 84100; 84484; 85025; 87040; 93005; 93010; 99291; J1815; J2765; J3480; J3490; J7030; J7050

== ENCOUNTER 2019-04-26 00:20 | Emergency (ER) | payer OTHER ==
[2019-04-26 00:32] VITALS: BP 112/57
--- NOTE | 2019-04-26 01:06 | ER Document Report ---
HPI - HPI Time Seen by Provider: 04/26/19 01:00 Pain Level: Denies Context: Patient is a 29-year-old male with a history of insulin-dependent diabetes who presents emergency department for refill of his medications. Patient denies any symptoms or any pain. His friend is at bedside. Patient speaks [place] and was offered Martti. The patient refused and wanted his friend to speak for him. - CONSTITUTIONAL Constitutional: DENIES: Fever, Chills - CARDIOVASCULAR Cardiovascular: DENIES: Chest pain - RESPIRATORY Respiratory: DENIES: Trouble Breathing, Coughing - GASTROINTESTINAL Gastrointestinal: DENIES: Abdominal Pain, Nausea, Patient vomiting, Diarrhea, Constipation, Black / Bloody Stools - REPRODUCTIVE Reproductive: DENIES: : - MUSCULOSKELETAL Musculoskeletal: DENIES: Extremity pain, Back Pain, Neck Pain, Swelling - DERM Skin Color: Normal Skin Problems: None Past Medical History - Social History Smoking Status: Never Smoker Chew tobacco use (# tins/day): No Frequency of alcohol use: None Drug Abuse: None Family History: Reviewed & Not Pertinent Patient has suicidal ideation: No Patient has homicidal ideation: No - Past Medical History Cardiac Medical History: Denies: Hx Congestive Heart Failure, Hx Heart Attack, Hx Hypercholesterolemia, Hx Hypertension Pulmonary Medical History: Denies: Hx Asthma, Hx COPD Neurological Medical History: Denies: Hx Seizures Endocrine Medical History: Reports: Hx Diabetes Mellitus Type 1, Hx Diabetes Mellitus Type 2. Denies: Hx Hyperthyroidism, Hx Hypothyroidism Renal/ Medical History: Denies: Hx Peritoneal Dialysis GI Medical History: Denies: Hx Cirrhosis, Hx Gastroesophageal Reflux Disease, Hx Hepatitis Musculoskeletal Medical History: Denies Hx Arthritis Psychiatric Medical History: Reports: Hx Depression Infectious Medical History: Denies: Hx Hepatitis Vertical Provider Document - CONSTITUTIONAL Agree With Documented VS: Yes Exam Limitations: No Limitations General Appearance: No Apparent Distress - INFECTION CONTROL TRAVEL OUTSIDE OF THE [place] IN LAST 30 DAYS: No - NECK Neck: Normal Inspection - RESPIRATORY Respiratory: Breath Sounds Normal, No Respiratory Distress - CARDIOVASCULAR Cardiovascular: Regular Rate, Regular Rhythm Pulses: Normal: Radial - GI/ABDOMEN Gastrointestinal: Abdomen Soft, Abdomen Non-Tender - MUSCULOSKELETAL/EXTREMETIES Musculoskeletal/Extremeties: FROM - NEURO Level of Consciousness: Awake, Alert, Appropriate Motor/Sensory: No Motor Deficit, No Sensory Deficit - DERM Integumentary: Warm, Dry, No Rash Course - Re-evaluation Re-evalutation: 04/26/19 01:00 Patient is denying any symptoms at this time. His blood sugar is 97 here in the emergency department. Patient states that he is unable to go to the [facility] until later on this month. He is currently on NovoLog 70/30, 18 units in the morning and 12 units before dinner. He states that he had the flex pen. He also noted that it was $350 for the flex pen without insurance. Patient still does not have insurance. Due to the cost of the NovoLog, I will give him a good Rx coupon which is roughly around $75 for a multidose vial. He states that he has used syringes before and knows how to use them. I will also give him a refill for syringes. Patient has been admitted quite a few times for diabetic ketoacidosis. I do not want him to go into DKA again, therefore I will write him a prescription. In our system, NovoLog 70/30 in the vial is not available for prescription. I wrote him a handwritten prescription for NovoLog 70/30 in the vial form. Patient will continue 18 units in the morning and 12 units before dinner. He is in agreement with this plan. I have a very low suspicion for any life-threatening etiology at this time. I have very low suspicion for diabetic ketoacidosis. Follow-up precautions were given. Verbal discharge instructions were given to the patient. They verbalized understanding. They are stable for discharge. Patient was grateful for his care. All of this was translated by the patient friend, who was also grateful for the refill in his prescription. - Vital Signs Vital signs: Temp Pulse Resp BP Pulse Ox 98.1 F 70 16 112/57 L 97 04/26/19 00:30 04/26/19 00:30 04/26/19 00:30 04/26/19 00:30 04/26/19 00:30 Discharge - Discharge Clinical Impression: Insulin dependent diabetes mellitus Condition: Stable Disposition: HOME, SELF-CARE Additional Instructions: You were seen today in the emergency department for a refill of your insulin prescription. Please follow-up with [facility]. Return if you vomit, feel sick, or cannot control your blood sugar. Please bring your handwritten prescription to the pharmacy for your NovoLog 70/30. Prescriptions: Syring-Needl,Disp,Insul,0.3 ml [Easy [place] Insulin Syringe] 1 each ASDIR PRN #1 disp.syrin PRN Reason: Referrals: [facility] [Provider Group] - Follow up in 3-5 days [facility] [Provider Group] - Follow up in 3-5 days
== END 2019-04-26 01:27 | disposition home or self-care (01) ==
LOC: ER 00:20
DX: E11.9 Type 2 diabetes mellitus without complications (principal); Z79.4 Long term (current) use of insulin; Z76.0 Encounter for issue of repeat prescription
CPT/HCPCS: 82962; 99282

== ENCOUNTER 2019-06-07 23:46 | Emergency (ER) | payer OTHER ==
[2019-06-07 23:54] VITALS: BP 109/73
--- NOTE | 2019-06-08 00:18 | ER Document Report ---
ED General - General Chief Complaint: High Blood Sugar Stated Complaint: BLOOD SUGAR PROBLEM Notes: Patient is a 29-year-old male with a history of insulin-dependent diabetes who presents to the emergency department with a chief complaint of needing medication refill. He states he normally takes NovoLog 70/30, 18 units in the morning and 10 units before dinner. Reports that he has a glucometer at home and checks his blood sugar regularly. He denies any complaints today. States that he still has approximately 2 or so doses left in his insulin but could not get into [facility] in time and did not want a run out of insulin as the patient has had episodes of DKA in the past. Patient blood sugar on last visit here was 97 when he was here for med refill, during history and triage today it was noted to be 100. Patient's friend provides much history at patient's request in lieu of Sangeeta. TRAVEL OUTSIDE OF THE [place] IN LAST 30 DAYS: No - Related Data Allergies/Adverse Reactions: No Known Allergies Allergy (Verified 10/17/16 23:30) Past Medical History - Social History Smoking Status: Unknown if Ever Smoked Family History: Reviewed & Not Pertinent - Past Medical History Cardiac Medical History: Denies: Hx Congestive Heart Failure, Hx Heart Attack, Hx Hypercholesterolemia, Hx Hypertension Pulmonary Medical History: Denies: Hx Asthma, Hx COPD Neurological Medical History: Denies: Hx Seizures Endocrine Medical History: Reports: Hx Diabetes Mellitus Type 1, Hx Diabetes Mellitus Type 2. Denies: Hx Hyperthyroidism, Hx Hypothyroidism Renal/ Medical History: Denies: Hx Peritoneal Dialysis GI Medical History: Denies: Hx Cirrhosis, Hx Gastroesophageal Reflux Disease, Hx Hepatitis Musculoskeletal Medical History: Denies Hx Arthritis Psychiatric Medical History: Reports: Hx Depression Infectious Medical History: Denies: Hx Hepatitis Review of Systems - Review of Systems -: Yes All other systems reviewed and negative Physical Exam - Vital signs Vitals: Temp Pulse Resp BP Pulse Ox 98.6 F 76 13 109/73 98 06/07/19 23:52 06/07/19 23:52 06/07/19 23:52 06/07/19 23:52 06/07/19 23:52 - General General appearance: Appears well, Alert In distress: None - HEENT Head: Normocephalic, Atraumatic Eyes: Normal Conjunctiva: Normal Extraocular movements intact: Yes Ears: Normal Mucous membranes: Moist Neck: Supple - Respiratory Respiratory status: No respiratory distress Chest status: Nontender Breath sounds: Normal Chest palpation: Normal - Cardiovascular Rhythm: Regular Heart sounds: Normal auscultation - Extremities General upper extremity: Normal inspection, Nontender, Normal color, Normal ROM, Normal temperature General lower extremity: Normal inspection, Nontender, Normal color, Normal ROM, Normal temperature, Normal weight bearing. No: Omer's sign - Neurological Neuro grossly intact: Yes Cognition: Normal Orientation: AAOx4 - Psychological Associated symptoms: Normal affect, Normal mood - Skin Skin Temperature: Warm Skin Moisture: Dry Skin Color: Normal Course - Re-evaluation Re-evalutation: 06/08/19 00:20 Patient given a refill of his normal insulin as well as a prescription for insulin syringes. Patient required no medicine here. He was asymptomatic. Only here for medication refill. He will use as previously prescribed and monitor his blood glucose closely prior to administration. Counseled him regarding the importance of outpatient follow-up with his primary at the [facility] in clinic. Advised they return here or any ER immediately with any new, persistent or worsening symptoms. They verbalized understood and agreed. - Vital Signs Vital signs: Temp Pulse Resp BP Pulse Ox 98.6 F 76 13 109/73 98 06/07/19 23:52 06/07/19 23:52 06/07/19 23:52 06/07/19 23:52 06/07/19 23:52 Discharge - Discharge Clinical Impression: Medication refill Condition: Stable Disposition: HOME, SELF-CARE Instructions: Insulin (OM) Additional Instructions: Follow-up with your regular doctor in 2 to 3 days for reevaluation. Return here or any ER immediately with any new, persistent or worsening symptoms. Prescriptions: Syring-Needl,Disp,Insul,0.3 ml [Easy [place] Insulin Syringe] 1 each MC BID #60 disp.syrin Insulin Aspart [Novolog Insulin 100 Unit/1 ml 10 ml] See Protocol SUBCUT .SLD SCALE #10 ml [facility] [NO [facility]AL MD] - Follow up as needed
== END 2019-06-08 00:22 | disposition home or self-care (01) ==
LOC: ER 23:46
DX: Z76.0 Encounter for issue of repeat prescription (principal); E11.9 Type 2 diabetes mellitus without complications; Z79.4 Long term (current) use of insulin
CPT/HCPCS: 82962; 99282

== ENCOUNTER 2019-08-23 00:04 | Emergency (ER) | payer OTHER ==
--- NOTE | 2019-08-23 00:41 | ER Document Report ---
HPI - HPI Time Seen by Provider: 08/23/19 00:35 Notes: Patient presents to the ED with request for medication refill of his 70/30 insulin. He denies any symptoms today. - ROS ROS below otherwise negative: Yes Systems Reviewed and Negative: Yes All other systems reviewed and negative - has no symptoms, here for medication refill - REPRODUCTIVE Reproductive: DENIES: : Past Medical History - General Information source: Patient - Social History Smoking Status: Never Smoker Frequency of alcohol use: None Lives with: Alone Family History: Reviewed & Not Pertinent - Past Medical History Cardiac Medical History: Denies: Hx Congestive Heart Failure, Hx Heart Attack, Hx Hypercholesterolemia, Hx Hypertension Pulmonary Medical History: Denies: Hx Asthma, Hx COPD Neurological Medical History: Denies: Hx Seizures Endocrine Medical History: Reports: Hx Diabetes Mellitus Type 1, Hx Diabetes Mellitus Type 2. Denies: Hx Hyperthyroidism, Hx Hypothyroidism Renal/ Medical History: Denies: Hx Peritoneal Dialysis GI Medical History: Denies: Hx Cirrhosis, Hx Gastroesophageal Reflux Disease, Hx Hepatitis Musculoskeletal Medical History: Denies Hx Arthritis Psychiatric Medical History: Reports: Hx Depression Infectious Medical History: Denies: Hx Hepatitis Vertical Provider Document - CONSTITUTIONAL Notes: PHYSICAL EXAMINATION: GENERAL: Well-appearing, well-nourished and in no acute distress. HEAD: Atraumatic, normocephalic. EYES: Pupils equal round extraocular movements intact, conjunctiva are normal. ENT: Nares patent NECK: Normal range of motion LUNGS: No respiratory distress Musculoskeletal: Normal range of motion NEUROLOGICAL: Normal speech, normal gait. PSYCH: Normal mood, normal affect. SKIN: Warm, Dry, normal turgor, no rashes or lesions noted. - INFECTION CONTROL TRAVEL OUTSIDE OF THE [place] IN LAST 30 DAYS: No Course - Re-evaluation Re-evalutation: Medication refilled per request, patient encouraged [facility]. - Vital Signs Vital signs: Temp Pulse Resp BP Pulse Ox 98.3 F 75 20 114/74 97 08/23/19 00:12 08/23/19 00:12 08/23/19 00:12 08/23/19 00:12 08/23/19 00:12 - Laboratory Laboratory results interpreted by me: 08/23/19 00:15 POC Glucose 124 H Discharge - Discharge Clinical Impression: Medication refill Condition: Stable Disposition: HOME, SELF-CARE Additional Instructions: Please take medications as prescribed. Follow-up with the [facility], their phone number is on the second page of this packet. Prescriptions: Insulin Aspart 18 unit SQ QAM #1 vial Insulin Aspart [Novolog Insulin 100 Unit/1 ml 10 ml] See Protocol SUBCUT .SLD SCALE #10 ml
[2019-08-23 01:09] VITALS: BP 113/70
== END 2019-08-23 01:06 | disposition home or self-care (01) ==
LOC: ER 00:04
DX: E11.9 Type 2 diabetes mellitus without complications (principal); Z79.4 Long term (current) use of insulin
CPT/HCPCS: 82962; 99282

== ENCOUNTER 2019-11-01 10:36 | Emergency (ER) | payer OTHER ==
--- NOTE | 2019-11-01 11:20 | ER Document Report ---
ED Medical Screen (RME) - General Chief Complaint: Medical Complaint Stated Complaint: BLOOD SUGAR ISSUE Time Seen by Provider: 11/01/19 11:15 Mode of Arrival: Ambulatory Information source: Patient Notes: 29-year-old male presented to ED for refill of his diabetic supplies. He has been here in February and August to get refills on his insulin and diabetes supplies. He states he does not have a primary care doctor does not follow-up with a pair primary care doctor and comes to the emergency room for all of his supplies. I have ordered basic labs and an Accu-Chek on him now as well as the A1c I have put in a discharge planning referral for him to be seen by someone before discharge. I have greeted and performed a rapid initial assessment of this patient. A comprehensive ED assessment and evaluation of the patient, analysis of test results and completion of medical decision making process will be conducted by an additional ED providers. TRAVEL OUTSIDE OF THE [place] IN LAST 30 DAYS: No - Related Data Allergies/Adverse Reactions: No Known Allergies Allergy (Verified 11/01/19 11:11) Past Medical History - Past Medical History Cardiac Medical History: Denies: Hx Congestive Heart Failure, Hx Heart Attack, Hx Hypercholesterole alejandrina, Hx Hypertension Pulmonary Medical History: Denies: Hx Asthma, Hx COPD Neurological Medical History: Denies: Hx Seizures Endocrine Medical History: Reports: Hx Diabetes Mellitus Type 1, Hx Diabetes Mellitus Type 2. Denies: Hx Hyperthyroidism, Hx Hypothyroidism Renal/ Medical History: Denies: Hx Peritoneal Dialysis GI Medical History: Denies: Hx Cirrhosis, Hx Gastroesophageal Reflux Disease, Hx Hepatitis Musculoskeltal Medical History: Denies Hx Arthritis Psychiatric Medical History: Reports: Hx Depression Infectious Medical History: Denies: Hx Hepatitis Physical Exam - Vital signs Vitals: Temp Pulse Resp BP Pulse Ox 98.1 F 81 18 111/73 98 11/01/19 10:39 11/01/19 10:39 11/01/19 10:39 11/01/19 10:39 11/01/19 10:39 Course - Vital Signs Vital signs: Temp Pulse Resp BP Pulse Ox 98.1 F 81 18 111/73 98 11/01/19 10:39 11/01/19 10:39 11/01/19 10:39 11/01/19 10:39 11/01/19 10:39
[2019-11-01 11:51] LABS: ABSOLUTE BASOPHILS # (AUTO) 0.1 10^3/uL (0.0-0.2); ABSOLUTE EOSINOPHILS # (AUTO) 0.7 10^3/uL (0.0-0.6); ABSOLUTE LYMPHOCYTES (AUTO) 2.1 10^3/uL (0.5-4.7); ABSOLUTE MONOCYTES (AUTO) 0.4 10^3/uL (0.1-1.4); ABSOLUTE NEUT (AUTO) 3.8 10^3/uL (1.7-8.2); APPEARANCE,URINE CLEAR; BASOPHILS % (AUTO) 1.1 % (0-2); BILIRUBIN,URINE NEGATIVE (NEGATIVE); COLOR,URINE YELLOW; EOSINOPHILS % (AUTO) 10.3 % (0-6); GLUCOSE, URINE NEGATIVE (NEGATIVE); HEMATOCRIT 44.8 % (37.9-51.0); HEMOGLOBIN 15.7 g/dL (13.5-17.0); KETONES,URINE NEGATIVE (NEGATIVE); LEUKOCYTE ESTERASE,URINE NEGATIVE (NEGATIVE); LYMPHOCYTES % (AUTO) 29.8 % (13-45); MEAN CORPUSCULAR HEMOGLOBIN 31.5 pg (27.0-33.4); MEAN CORPUSCULAR VOLUME 90 fl (80-97); MONOCYTES % (AUTO) 5.5 % (3-13); NITRITE,URINE NEGATIVE (NEGATIVE); PLATELET COUNT 207 10^3/uL (150-450); PROTEIN,URINE NEGATIVE (NEGATIVE); RED BLOOD COUNT 4.98 10^6/uL (4.35-5.55); RED CELL DISTRIBUTION WIDTH 12.8 % (11.5-14.0); SEGMENTED NEUTROPHILS % (AUTO) 53.3 % (42-78); TOTAL CELLS COUNTED % (AUTO) 100 %; UROBILINOGEN,URINE NEGATIVE mg/dL (<2.0)
[2019-11-01 12:11] LABS: ALBUMIN 4.6 g/dL (3.5-5.0); ALKALINE PHOSPHATASE 69 U/L (38-126); ANION GAP 8 (5-19); ASPARTATE AMINO TRANSFERASE 25 U/L (17-59); BILIRUBIN,DIRECT 0.2 mg/dL (0.0-0.4); BILIRUBIN,TOTAL 1.4 mg/dL (0.2-1.3); BLOOD UREA NITROGEN 19 mg/dL (7-20); CALCIUM 9.8 mg/dL (8.4-10.2); CARBON DIOXIDE 28 mmol/L (22-30); CHLORIDE 103 mmol/L (98-107); GLUCOSE 121 mg/dL (75-110); POTASSIUM 4.6 mmol/L (3.6-5.0); TOTAL PROTEIN 7.5 g/dL (6.3-8.2)
--- NOTE | 2019-11-01 13:09 | ER Document Report ---
HPI - HPI Patient complains to provider of: Medication refill Time Seen by Provider: 11/01/19 11:15 Onset: This morning Pain Level: Denies Context: Patient presents requesting a refill of his insulin. Patient states that he will run out tomorrow and does not have a primary doctor to refill his medications. Patient denies any problems today. Associated Symptoms: None Exacerbated by: Denies Relieved by: Denies Similar symptoms previously: Yes Recently seen / treated by doctor: No - ROS ROS below otherwise negative: Yes Systems Reviewed and Negative: Yes All other systems reviewed and negative - CONSTITUTIONAL Constitutional: DENIES: Fever, Chills - GASTROINTESTINAL Gastrointestinal: DENIES: Nausea, Patient vomiting - DERM Skin Color: Normal Skin Problems: None Past Medical History - General Information source: Patient - Social History Smoking Status: Never Smoker Chew tobacco use (# tins/day): No Frequency of alcohol use: None Drug Abuse: None Occupation: [employer] Lives with: Family Family History: Reviewed & Not Pertinent Patient has homicidal ideation: No Pulmonary Medical History: Denies: Hx Asthma, Hx COPD Neurological Medical History: Denies: Hx Seizures Endocrine Medical History: Reports: Hx Diabetes Mellitus Type 1. Denies: Hx Hyperthyroidism, Hx Hypothyroidism Renal/ Medical History: Denies: Hx Peritoneal Dialysis GI Medical History: Denies: Hx Cirrhosis, Hx Gastroesophageal Reflux Disease, Hx Hepatitis Musculoskeletal Medical History: Denies Hx Arthritis Psychiatric Medical History: Reports: Hx Depression Infectious Medical History: Denies: Hx Hepatitis Surgical Hx: Negative Vertical Provider Document - CONSTITUTIONAL Agree With Documented VS: Yes Exam Limitations: No Limitations General Appearance: WD/WN, No Apparent Distress Notes: PHYSICAL EXAMINATION: GENERAL: Well-appearing and in no acute distress. HEAD: Atraumatic, normocephalic. EYES: sclera anicteric, conjunctiva are normal. ENT: nares patent. Moist mucous membranes. NECK: Normal range of motion, supple LUNGS: CTAB and equal. No wheezes rales or rhonchi. HEART: Regular rate and rhythm without murmurs ABDOMEN: Soft, nontender EXTREMITIES: Normal range of motion, no pitting edema. BACK: No CVA tenderness NEUROLOGICAL: Cranial nerves grossly intact. PSYCH: Normal mood, normal affect. SKIN: Warm, Dry, normal turgor, no rashes or lesions noted Course - Re-evaluation Re-evalutation: 11/01/19 13:08 Patient is here only for medication refill. Patient and his family member are anxious to leave. Consult has been placed for discharge planning although they have yet to evaluate patient. Family would like to leave at this time. - Vital Signs Vital signs: Temp Pulse Resp BP Pulse Ox 98.1 F 81 18 111/73 98 11/01/19 10:39 11/01/19 10:39 11/01/19 10:39 11/01/19 10:39 11/01/19 10:39 - Laboratory Result Diagrams: 11/01/19 11:32 11/01/19 11:32 Laboratory results interpreted by me: 11/01/19 11/01/19 11/01/19 11:32 11:32 11:32 Eos % (Auto) 10.3 H Absolute Eos (auto) 0.7 H Glucose 121 H POC Glucose 112 H Total Bilirubin 1.4 H Discharge - Discharge Clinical Impression: Insulin dependent diabetes mellitus, Medication refill Condition: Stable Disposition: HOME, SELF-CARE Additional Instructions: Return immediately for any new or worsening symptoms Followup with your primary care provider, call tomorrow to make a followup appoi ntment Prescriptions: Insulin NPH Hum/Reg Insulin Hm [Novolin 70-30 Flexpen] 1 unit SQ ASDIR #5 [email or web address] Referrals: [facility] [Provider Group] - Follow up as needed
[2019-11-01 14:15] VITALS: BP 109/78
== END 2019-11-01 14:10 | disposition home or self-care (01) ==
LOC: ER 10:36
DX: Z76.0 Encounter for issue of repeat prescription (principal); E10.9 Type 1 diabetes mellitus without complications; Z79.4 Long term (current) use of insulin
CPT/HCPCS: 36415; 80053; 81001; 82962; 83036; 85025; 99283